=== PATIENT | female | born 1950 | race American Indian/Alaskan Native ===

== ENCOUNTER 2017-03-30 13:11 | Inpatient (IN) | payer MEDICARE ==
[2017-03-30 13:49] LABS: Basophils % (Auto) 0.3 % (0.0-1.8); Eosinophils % (Auto) 2.4 % (0.0-4.3); Hematocrit 39.5 % (30.3-42.9); Hemoglobin 12.4 gm/dl (10.1-14.3); Mean Corpuscular HGB Conc 31 % (30-34); Mean Corpuscular Hemoglobin 29 pg (28-32); Mean Corpuscular Volume 93 fl (79-97); Platelet Count 181 K/mm3 (140-440); Red Blood Count 4.24 M/mm3 (3.65-5.03); White Blood Count 6.7 K/mm3 (4.5-11.0)
[2017-03-30 13:52] LABS: BUN/Creatinine Ratio 15.62; Potassium 4.7 mmol/L (3.6-5.0)
[2017-03-30 13:58] LABS: INR 1.05 (0.87-1.13)
[2017-03-30 13:59] LABS: Partial Thromboplastin Time 31.3 Sec. (24.2-36.6)
--- NOTE | 2017-03-30 14:55 | Cat Scan Report ---
FINAL REPORT PROCEDURE: CT HEAD/BRAIN WO CON TECHNIQUE: Computerized tomography of the head was performed without contrast material. HISTORY: neuro deficits \T\lt; 6hrs or sx present upon awakening COMPARISON: No prior studies are available for comparison. FINDINGS: Brain: Brain density appears normal. No evidence of intracranial hemorrhage. No parenchymal hemorrhage, mass lesions or mass effect are seen. No abnormal extraxial fluid collects or masses are seen. Ventricles: Ventricles are normal size and are midline. Bone Windows: No evidence of skull fracture. Paranasal sinuses: 4 millimeter benign-appearing nodules seen anteriorly in the right maxillary sinus suggesting a small polyp or mucous retention cyst. Visualized portions of the paranasal sinuses otherwise appear clear. Visualized portions of the paranasal sinuses otherwise appear clear. Mastoid air cells: Clear IMPRESSION: Negative unenhanced CT of the brain. If symptoms persist or worsen consider follow-up CT scan or MRI for further evaluation.
[2017-03-30 17:05] LABS: ISTAT Base Excess -1; ISTAT HCO3 25.3; ISTAT PCO2 48.1 (35-45); ISTAT PH 7.328 (7.35-7.45); ISTAT PO2 101 (80-105); ISTAT SO2 97; ISTAT TCO2 27
--- NOTE | 2017-03-30 17:30 | Emergency Department Report ---
ED Dizziness HPI - General Chief Complaint: Dizziness Stated Complaint: SLUGGISH/IRISH/CANT STAY AWAKE Time Seen by Provider: 03/30/17 16:23 Source: patient Mode of arrival: Wheelchair Limitations: No Limitations - History of Present Illness Initial Comments: 66 yo female with a past medical history of COPD dependent on 2 L oxygen, CHF, asthma, hypertension, CAD with stents presents to the hospital complains of feeling swimmy headed off balance and increased drowsiness last 3-4 days. Patient ran out of her prednisone 10 mg daily dose 2 weeks ago. She complains of some mild increased shortness of breath temporarily relieved with nebulized treatments. Intermittent bilateral lower extremity edema reported and right leg pain. She denies chest pain, cough, fever, nausea, vomiting, diarrhea, decreased by mouth intake. She ambulates with a cane at her baseline. Intelligence Specialist Dr. Gaspar, PMD: Dr. Krueger - Related Data Previous Rx's Medication Instructions Recorded Last Taken Type ALBUTEROL NEB's [Proventil 0.083% 2.5 mg IH Q6H #100 ml 04/25/14 09/10/15 Rx NEBS] 2.5 MG Aspirin [Aspirin BABY CHEW TAB] 81 mg PO QDAY #90 tab.chew 09/15/15 Unknown Rx Carvedilol [Coreg] 12.5 mg PO BID #60 tablet 09/15/15 Unknown Rx Furosemide [Lasix TAB] 20 mg PO QDAY #30 tablet 09/15/15 Unknown Rx Ipratropium [Atrovent NEB] 0.5 mg IH Q8HRT PRN #50 nebu 09/15/15 Unknown Rx Ipratropium/Albuterol Sulfate 1 ampul IH Q4HRT #120 ampul.neb 09/15/15 Unknown Rx [DUONEB *Not for PRN Use*] Losartan [Cozaar] 50 mg PO QDAY #30 tablet 09/15/15 Unknown Rx Potassium Chloride 10 meq PO QDAY #30 packet 09/15/15 Unknown Rx QUEtiapine [SEROquel] 400 mg PO BID #60 tablet 09/15/15 Unknown Rx Sertraline [Zoloft] 200 mg PO DAILY #30 tablet 09/15/15 Unknown Rx amLODIPine [Norvasc] 5 mg PO DAILY #30 tablet 09/15/15 Unknown Rx clonazePAM 1 tab PO BID #60 tablet 09/15/15 Unknown Rx predniSONE [Deltasone] 10 mg PO QDAY #60 tab 09/15/15 Unknown Rx Allergies Allergy/AdvReac Type Severity Reaction Status Date / Time penicillin G Allergy Itching Verified 12/23/14 14:13 codeine AdvReac Dizziness Verified 12/23/14 14:13 ED Review of Systems ROS: Stated complaint: SLUGGISH/IRISH/CANT STAY AWAKE Other details as noted in HPI Comment: All other systems reviewed and negative Other: Constitutional: No fevers chills Eyes: No eye pain visual changes ENT: No ear pain or throat pain Neck: Denies pain Respiratory: Denies cough wheezing shortness of breath Cardiovascular: Denies chest pain, palpitations, syncope GI: Denies abdominal pain, nausea, vomiting, diarrhea : Denies dysuria Musculoskeletal: Denies back pain Skin: Denies rash, lesions, erythema Neurologic: Denies headache, numbness Psychiatric: Denies suicidal ideation, hallucinations ED Past Medical Hx - Past Medical History Previous Medical History?: Yes Hx Hypertension: Yes Hx Congestive Heart Failure: Yes Hx Diabetes: No Hx Asthma: Yes Hx COPD: Yes Hx HIV: No Additional medical history: CAD - Surgical History Past Surgical History?: Yes Hx Coronary Stent: Yes Additional Surgical History: stents, heart cath - Social History Smoking Status: Never Smoker Substance Use Type: None - Medications Home Medications: Home Medications Medication Instructions Recorded Confirmed Last Taken Type ALBUTEROL NEB's [Proventil 0.083% 2.5 mg IH Q6H #100 ml 04/25/14 09/10/15 Rx NEBS] 2.5 MG Aspirin [Aspirin BABY CHEW TAB] 81 mg PO QDAY #90 tab.chew 09/15/15 Unknown Rx Carvedilol [Coreg] 12.5 mg PO BID #60 tablet 09/15/15 Unknown Rx Furosemide [Lasix TAB] 20 mg PO QDAY #30 tablet 09/15/15 Unknown Rx Ipratropium [Atrovent NEB] 0.5 mg IH Q8HRT PRN #50 nebu 09/15/15 Unknown Rx Ipratropium/Albuterol Sulfate 1 ampul IH Q4HRT #120 ampul.neb 09/15/15 Unknown Rx [DUONEB *Not for PRN Use*] Losartan [Cozaar] 50 mg PO QDAY #30 tablet 09/15/15 Unknown Rx Potassium Chloride 10 meq PO QDAY #30 packet 09/15/15 Unknown Rx QUEtiapine [SEROquel] 400 mg PO BID #60 tablet 09/15/15 Unknown Rx Sertraline [Zoloft] 200 mg PO DAILY #30 tablet 09/15/15 Unknown Rx amLODIPine [Norvasc] 5 mg PO DAILY #30 tablet 09/15/15 Unknown Rx clonazePAM 1 tab PO BID #60 tablet 09/15/15 Unknown Rx predniSONE [Deltasone] 10 mg PO QDAY #60 tab 09/15/15 Unknown Rx ED Physical Exam - General Limitations: No Limitations - Other Other exam information: General: No limitations, patient is alert in no acute distress Head exam: Atraumatic, normocephalic Eyes exam: Normal appearance, pupils equal reactive to light, extraocular movements intact ENT: Moist mucous membrane, normal oropharynx Neck exam: Normal inspection, full range of motion, no meningismus nontender Respiratory exam: Clear to auscultation bilateral, no wheezes, rales, crackles Cardiovascular: Normal rate and rhythm, normal heart sounds Abdomen: Soft, nondistended, and nontender, with normal bowel sounds, no rebound, or guarding Extremity: Full range of motion normal inspection no deformity. Mild lower extremity edema equal bilaterally. No leg asymmetry. Generalized right leg pain with muscle tenderness of upper and lower leg. No warmth or erythema. Back: Normal Inspection, full range of motion, no tenderness Neurologic: Alert, oriented x3, cranial nerves intact, no motor or sensory deficit Psychiatric: normal affect, normal mood Skin: Warm, dry, intact ED Course Vital Signs 03/30/17 03/30/17 03/30/17 13:16 16:44 17:01 Temperature 98.6 F Pulse Rate 94 H Respiratory 16 16 Rate Blood Pressure 113/64 O2 Sat by Pulse 98 96 99 Oximetry 03/30/17 03/30/17 03/30/17 17:04 17:06 17:08 Temperature Pulse Rate 81 80 81 Respiratory 13 17 14 Rate Blood Pressure 107/65 107/65 107/65 O2 Sat by Pulse 99 98 98 Oximetry 03/30/17 03/30/17 03/30/17 17:10 17:12 17:14 Temperature Pulse Rate 81 80 81 Respiratory 13 14 13 Rate Blood Pressure 107/65 107/65 107/65 O2 Sat by Pulse 99 98 98 Oximetry 03/30/17 03/30/17 03/30/17 17:16 17:18 17:20 Temperature Pulse Rate 80 80 81 Respiratory 13 14 14 Rate Blood Pressure 107/65 107/65 107/65 O2 Sat by Pulse 98 98 98 Oximetry 03/30/17 03/30/17 03/30/17 17:22 17:24 17:26 Temperature Pulse Rate 83 80 81 Respiratory 15 14 13 Rate Blood Pressure 107/65 107/65 107/65 O2 Sat by Pulse 97 98 97 Oximetry 03/30/17 03/30/17 03/30/17 17:28 17:30 17:32 Temperature Pulse Rate 82 81 81 Respiratory 14 14 14 Rate Blood Pressure 107/65 107/65 107/65 O2 Sat by Pulse 98 98 99 Oximetry 03/30/17 03/30/17 03/30/17 17:34 17:36 17:38 Temperature Pulse Rate 81 83 84 Respiratory 13 14 13 Rate Blood Pressure 107/65 107/65 107/65 O2 Sat by Pulse 98 98 97 Oximetry 03/30/17 03/30/17 03/30/17 17:40 17:42 17:44 Temperature Pulse Rate 83 83 83 Respiratory 20 18 17 Rate Blood Pressure 107/65 107/65 107/65 O2 Sat by Pulse 98 98 98 Oximetry 03/30/17 03/30/17 03/30/17 17:46 17:48 17:50 Temperature Pulse Rate 84 84 83 Respiratory 17 17 17 Rate Blood Pressure 107/65 107/65 107/65 O2 Sat by Pulse 99 98 99 Oximetry 03/30/17 03/30/17 03/30/17 17:52 17:54 17:56 Temperature Pulse Rate 82 82 82 Respiratory 16 14 16 Rate Blood Pressure 107/65 107/65 107/65 O2 Sat by Pulse 99 99 100 Oximetry 03/30/17 03/30/17 03/30/17 17:58 18:00 18:01 Temperature Pulse Rate 82 81 82 Respiratory 14 15 15 Rate Blood Pressure 107/65 107/65 130/82 O2 Sat by Pulse 100 100 100 Oximetry 03/30/17 03/30/17 03/30/17 18:02 18:04 18:06 Temperature Pulse Rate 82 83 81 Respiratory 16 17 15 Rate Blood Pressure 130/82 130/82 130/82 O2 Sat by Pulse 99 100 99 Oximetry 03/30/17 03/30/17 03/30/17 18:08 18:10 18:12 Temperature Pulse Rate 82 82 82 Respiratory 14 13 16 Rate Blood Pressure 130/82 130/82 130/82 O2 Sat by Pulse 100 100 100 Oximetry 03/30/17 03/30/17 03/30/17 18:14 18:16 18:17 Temperature Pulse Rate 82 82 82 Respiratory 16 15 15 Rate Blood Pressure 130/82 O2 Sat by Pulse 99 99 100 Oximetry 03/30/17 03/30/17 03/30/17 18:19 18:21 18:23 Temperature Pulse Rate 82 82 81 Respiratory 17 15 15 Rate Blood Pressure O2 Sat by Pulse 100 99 99 Oximetry 03/30/17 03/30/17 03/30/17 18:25 18:27 18:29 Temperature Pulse Rate 82 82 83 Respiratory 16 20 17 Rate Blood Pressure 130/82 130/82 O2 Sat by Pulse 99 100 99 Oximetry 03/30/17 03/30/17 03/30/17 18:31 18:33 18:35 Temperature Pulse Rate 83 82 82 Respiratory 18 15 16 Rate Blood Pressure 130/82 130/82 130/82 O2 Sat by Pulse 99 100 99 Oximetry 03/30/17 03/30/17 18:37 18:39 Temperature Pulse Rate 85 83 Respiratory 19 18 Rate Blood Pressure 130/82 130/82 O2 Sat by Pulse 100 99 Oximetry - Reevaluation(s) Reevaluation #1: 03/30/17 19:11 [place] given for pain. Orthostatics unremarkable. Symptoms could be secondary to steriod withdrawal. Chest x-ray unremarkable - Consultations Consultation #1: 03/30/17 17:55 Dr Krueger states he is unable to discuss patient this time and recommends admission to the hospitalist service. ED Medical Decision Making - Lab Data Result diagrams: 03/30/17 13:29 03/30/17 13:29 Lab Results 03/30/17 03/30/17 03/30/17 Range/Units 13:29 13:29 13:29 WBC 6.7 (4.5-11.0) K/mm3 RBC 4.24 (3.65-5.03) M/mm3 Hgb 12.4 (10.1-14.3) gm/dl Hct 39.5 (30.3-42.9) % MCV 93 (79-97) fl MCH 29 (28-32) pg MCHC 31 (30-34) % RDW 14.0 (13.2-15.2) % Plt Count 181 (140-440) K/mm3 Lymph % (Auto) 27.4 (13.4-35.0) % [place] % (Auto) 14.5 H (0.0-7.3) % Eos % (Auto) 2.4 (0.0-4.3) % Baso % (Auto) 0.3 (0.0-1.8) % Lymph # 1.8 (1.2-5.4) K/mm3 [place] # 1.0 H (0.0-0.8) K/mm3 Eos # 0.2 (0.0-0.4) K/mm3 Baso # 0.0 (0.0-0.1) K/mm3 Seg Neutrophils % 55.4 (40.0-70.0) % Seg Neutrophils # 3.7 (1.8-7.7) K/mm3 PT 13.6 (12.2-14.9) Sec. INR 1.05 (0.87-1.13) APTT 31.3 (24.2-36.6) Sec. Thrombin Time (15.1-19.6) Sec. POC ABG pH (7.35-7.45) POC ABG pCO2 (35-45) POC ABG pO2 (80-105) POC ABG HCO3 POC ABG Total CO2 POC ABG O2 Sat POC ABG Base Excess FiO2 % Sodium 137 (137-145) mmol/L Potassium 4.7 (3.6-5.0) mmol/L Chloride 98.0 (98-107) mmol/L Carbon Dioxide 24 (22-30) mmol/L Anion Gap 20 mmol/L BUN 25 H (7-17) mg/dL Creatinine 1.6 H (0.7-1.2) mg/dL Estimated GFR 39 ml/min BUN/Creatinine Ratio 15.62 % Glucose 105 H (65-100) mg/dL Calcium 9.0 (8.4-10.2) mg/dL Troponin T 0.072 H (0.00-0.029) ng/mL Triglycerides 76 (2-149) mg/dL Cholesterol 200 H (50-199) mg/dL LDL Cholesterol Direct 123 (50-130) mg/dL HDL Cholesterol 62 H (40-59) mg/dL Cholesterol/HDL Ratio 3.22 % 03/30/17 03/30/17 Range/Units 13:29 16:57 WBC (4.5-11.0) K/mm3 RBC (3.65-5.03) M/mm3 Hgb (10.1-14.3) gm/dl Hct (30.3-42.9) % MCV (79-97) fl MCH (28-32) pg MCHC (30-34) % RDW (13.2-15.2) % Plt Count (140-440) K/mm3 Lymph % (Auto) (13.4-35.0) % [place] % (Auto) (0.0-7.3) % Eos % (Auto) (0.0-4.3) % Baso % (Auto) (0.0-1.8) % Lymph # (1.2-5.4) K/mm3 [place] # (0.0-0.8) K/mm3 Eos # (0.0-0.4) K/mm3 Baso # (0.0-0.1) K/mm3 Seg Neutrophils % (40.0-70.0) % Seg Neutrophils # (1.8-7.7) K/mm3 PT (12.2-14.9) Sec. INR (0.87-1.13) APTT (24.2-36.6) Sec. Thrombin Time 17.5 (15.1-19.6) Sec. POC ABG pH 7.328 L (7.35-7.45) POC ABG pCO2 48.1 H (35-45) POC ABG pO2 101 (80-105) POC ABG HCO3 25.3 POC ABG Total CO2 27 POC ABG O2 Sat 97 POC ABG Base Excess -1 FiO2 2 % Sodium (137-145) mmol/L Potassium (3.6-5.0) mmol/L Chloride (98-107) mmol/L Carbon Dioxide (22-30) mmol/L Anion Gap mmol/L BUN (7-17) mg/dL Creatinine (0.7-1.2) mg/dL Estimated GFR ml/min BUN/Creatinine Ratio % Glucose (65-100) mg/dL Calcium (8.4-10.2) mg/dL Troponin T (0.00-0.029) ng/mL Triglycerides (2-149) mg/dL Cholesterol (50-199) mg/dL LDL Cholesterol Direct (50-130) mg/dL HDL Cholesterol (40-59) mg/dL Cholesterol/HDL Ratio % - EKG Data -: EKG Interpreted by Me (sinus rhythm rate 88 Rule out anterior infarct) - EKG Data When compared to previous EKG there are: no significant change (comparec to 2015) - Radiology Data Radiology results: report reviewed CTA: No acute findings Chest x-ray single view: Increased density left lower lobe just atelectasis versus subsegmental infiltrate. - Medical Decision Making Patient does not have clinical signs of pneumonia lacks fever, leukocytosis therefore I think that chest x-ray findings is more suggestive of atelectasis as opposed to infiltrate. Patient has elevated troponin which could be secondary to renal insufficiency but given cardiac history repeat is needed. No signs of co2 retention, narcosis. Patient does have right leg pain but no asymmetry noted. No reports of chest pain - Differential Diagnosis infection, CO2 retention, COPD exacerbation, Critical Care Time: No Critical care attestation.: If time is entered above; I have spent that time in minutes in the direct care of this critically ill patient, excluding procedure time. ED Disposition Clinical Impression: COPD exacerbation, History of PTCA, Morbid exogenous obesity, Shortness of breath, Lightheadedness, Acute renal insufficiency, Hypertension Disposition: OP ADMIT IP TO THIS HOSP Is pt being admited?: Yes Condition: Stable Time of Disposition: 19:33 (Dr brady/hosp)
[2017-03-30] MEDS ORDERED: NORCO 5/325 PO ONE (17:51)
--- NOTE | 2017-03-30 18:01 | XRay Report ---
FINAL REPORT PROCEDURE: XR CHEST 1V AP TECHNIQUE: Chest radiograph anteroposterior view. CPT 87828 HISTORY: sob COMPARISON: No prior studies are available for comparison. FINDINGS: Heart: Normal size. Mediastinum/Vessels: Normal. Lungs/Pleural space: There is increased density in the left lower lobe suggesting left lower lobe pneumonia or atelectasis. Clinical correlation necessary. Lung brito otherwise are clear. No effusions are identified.. Bony thorax: No acute osseous abnormality. Life support devices: None. IMPRESSION: Increased density left lower lobe suggesting atelectasis versus subsegmental infiltrate. Clinical correlation recommended. No other abnormality is seen..
[2017-03-30] MEDS ORDERED: ATROVENT IH PRN (21:01)
--- NOTE | 2017-03-30 21:01 | History and Physical Report ---
History of Present Illness Date of examination: 03/30/17 Medications and Allergies Allergies Allergy/AdvReac Type Severity Reaction Status Date / Time penicillin G Allergy Itching Verified 12/23/14 14:13 codeine AdvReac Dizziness Verified 12/23/14 14:13 Home Medications Medication Instructions Recorded Confirmed Last Taken Type ALBUTEROL NEB's [Proventil 0.083% 2.5 mg IH Q6H #100 ml 04/25/14 09/10/15 Rx NEBS] 2.5 MG Aspirin [Aspirin BABY CHEW TAB] 81 mg PO QDAY #90 tab.chew 09/15/15 Unknown Rx Carvedilol [Coreg] 12.5 mg PO BID #60 tablet 09/15/15 Unknown Rx Furosemide [Lasix TAB] 20 mg PO QDAY #30 tablet 09/15/15 Unknown Rx Ipratropium [Atrovent NEB] 0.5 mg IH Q8HRT PRN #50 nebu 09/15/15 Unknown Rx Ipratropium/Albuterol Sulfate 1 ampul IH Q4HRT #120 ampul.neb 09/15/15 Unknown Rx [DUONEB *Not for PRN Use*] Losartan [Cozaar] 50 mg PO QDAY #30 tablet 09/15/15 Unknown Rx Potassium Chloride 10 meq PO QDAY #30 packet 09/15/15 Unknown Rx QUEtiapine [SEROquel] 400 mg PO BID #60 tablet 09/15/15 Unknown Rx Sertraline [Zoloft] 200 mg PO DAILY #30 tablet 09/15/15 Unknown Rx amLODIPine [Norvasc] 5 mg PO DAILY #30 tablet 09/15/15 Unknown Rx clonazePAM 1 tab PO BID #60 tablet 09/15/15 Unknown Rx predniSONE [Deltasone] 10 mg PO QDAY #60 tab 09/15/15 Unknown Rx Exam - Constitutional Vitals: Temp Pulse Resp BP Pulse Ox 98.6 F 83 18 130/82 99 03/30/17 13:16 03/30/17 18:39 03/30/17 18:39 03/30/17 18:39 03/30/17 18:39 Results - Labs CBC & Chem 7: 03/30/17 13:29 03/30/17 13:29 Labs: Laboratory Last Values WBC 6.7 K/mm3 (4.5-11.0) 03/30/17 13: RBC 4.24 M/mm3 (3.65-5.03) 03/30/17 13: Hgb 12.4 gm/dl (10.1-14.3) 03/30/17 13: Hct 39.5 % (30.3-42.9) 03/30/17 13: MCV 93 fl (79-97) 03/30/17 13: MCH 29 pg (28-32) 03/30/17 13: MCHC 31 % (30-34) 03/30/17 13: RDW 14.0 % (13.2-15.2) 03/30/17 13: Plt Count 181 K/mm3 (140-440) 03/30/17 13: Lymph % (Auto) 27.4 % (13.4-35.0) 03/30/17 13: [place] % (Auto) 14.5 % (0.0-7.3) H 03/30/17 13: Eos % (Auto) 2.4 % (0.0-4.3) 03/30/17 13: Baso % (Auto) 0.3 % (0.0-1.8) 03/30/17 13: Lymph # 1.8 K/mm3 (1.2-5.4) 03/30/17 13: [place] # 1.0 K/mm3 (0.0-0.8) H 03/30/17 13: Eos # 0.2 K/mm3 (0.0-0.4) 03/30/17 13: Baso # 0.0 K/mm3 (0.0-0.1) 03/30/17 13: Seg Neutrophils % 55.4 % (40.0-70.0) 03/30/17: Seg Neutrophils # 3.7 K/mm3 (1.8-7.7) 03/30/17 13: PT 13.6 Sec. (12.2-14.9) 03/30/17 13: INR 1.05 (0.87-1.13) 03/30/17 13: APTT 31.3 Sec. (24.2-36.6) 03/30/17 13:29 Thrombin Time 17.5 Sec. (15.1-19.6) 03/30/17 13:29 POC ABG pH 7.328 (7.35-7.45) L 03/30/17 16:57 POC ABG pCO2 48.1 (35-45) H 03/30/17 16:57 POC ABG pO2 101 (80-105) 03/30/17 16:57 POC ABG HCO3 25.3 03/30/17 16:57 POC ABG Total CO2 27 03/30/17 16:57 POC ABG O2 Sat 97 03/30/17 16:57 POC ABG Base Excess -1 03/30/17 16:57 FiO2 2 % 03/30/17 16:57 Sodium 137 mmol/L (137-145) 03/30/17 13:29 Potassium 4.7 mmol/L (3.6-5.0) 03/30/17 13:29 Chloride 98.0 mmol/L (98-107) 03/30/17 13:29 Carbon Dioxide 24 mmol/L (22-30) 03/30/17 13:29 Anion Gap 20 mmol/L 03/30/17 13:29 BUN 25 mg/dL (7-17) H 03/30/17 13:29 Creatinine 1.6 mg/dL (0.7-1.2) H 03/30/17 13:29 Estimated GFR 39 ml/min 03/30/17 13:29 BUN/Creatinine Ratio 15.62 % 03/30/17 13:29 Glucose 105 mg/dL (65-100) H 03/30/17 13:29 Calcium 9.0 mg/dL (8.4-10.2) 03/30/17 13:29 Troponin T 0.048 ng/mL (0.00-0.029) H D 03/30/17 19:30 Triglycerides 76 mg/dL (2-149) 03/30/17 13:29 Cholesterol 200 mg/dL (50-199) H 03/30/17 13:29 LDL Cholesterol Direct 123 mg/dL (50-130) 03/30/17 13:29 HDL Cholesterol 62 mg/dL (40-59) H 03/30/17 13:29 Cholesterol/HDL Ratio 3.22 % 03/30/17 13:29
[2017-03-30] MEDS ORDERED: TYLENOL PO PRN (21:03)
[2017-03-30] MEDS ORDERED: ZOFRAN IV PRN (21:03)
[2017-03-30] MEDS ORDERED: DULCOLAX PR PRN (21:03)
[2017-03-30] MEDS ORDERED: MILK OF MAGNESIA PO PRN (21:03)
[2017-03-30] MEDS ORDERED: DUONEB *Not for PRN Use IH (21:05)
[2017-03-30] MEDS ORDERED: PROVENTIL IH PRN (21:15)
[2017-03-30] MEDS ORDERED: PROVENTIL IH SCH (21:15)
[2017-03-30] MEDS ORDERED: DUONEB *Not for PRN Use IH SCH (21:15)
[2017-03-30] MEDS ORDERED: LEVAQUIN 750MG/150ML 750 MG/150 ML BAG IV SCH (22:00)
[2017-03-30] MEDS: BABY ASPIRIN PO SCH (23:04)
[2017-03-30] MEDS: NORVASC PO SCH (23:05)
[2017-03-30] MEDS: COREG PO SCH (23:44)
[2017-03-31] MEDS: DUONEB *Not for PRN Use IH SCH ×7 (01:00→23:27)
[2017-03-31 07:18] LABS: Albumin 3.5 g/dL (3.9-5); BUN/Creatinine Ratio 17.85; Bilirubin,Total 0.4 mg/dL (0.1-1.2); Calcium 8.9 mg/dL (8.4-10.2); Potassium 4.3 mmol/L (3.6-5.0); Total Protein 7.1 g/dL (6.3-8.2)
--- NOTE | 2017-03-31 08:53 | History and Physical Report ---
History of Present Illness Date of examination: 03/31/17 Date of admission: 03/30/17 21:03 Chief complaint: Shortness of breath, dizziness History of present illness: Pt is a 66 y/o lady who is well known to me with a history of CHF, CAD s/p stent, frequent falls, COPD, dependent on 2 L oxygen at home presented to the ER of [facility] on account of worsening shortness of breath. Her symptoms were not improved with her home nebulizer treatment. Pt had been on prednisone for her advance COPD but ran out about 1 week ago. She denies any fever, chills, chest pain nausea of vomiting. Has occasional sharif lower extremities swelling. At the ER, pt was given further nebulizer treatment of beta agonist. Symptoms persisted. CXR showed left lower lobe atelecesis versus infiltrate but had no leukocytosis. Admissionws therefore requested. Past History Past Medical History: CAD, COPD, heart failure, hypertension Past Surgical History: PTCA Social history: denies: smoking, alcohol abuse, prescription drug abuse Medications and Allergies Allergies Allergy/AdvReac Type Severity Reaction Status Date / Time penicillin G Allergy Itching Verified 12/23/14 14:13 codeine AdvReac Dizziness Verified 12/23/14 14:13 Home Medications Medication Instructions Recorded Confirmed Last Taken Type ALBUTEROL NEB's [Proventil 0.083% 2.5 mg IH Q6H #100 ml 04/25/14 03/30/17 Rx NEBS] 2.5 MG Aspirin [Aspirin BABY CHEW TAB] 81 mg PO QDAY #90 tab.chew 09/15/15 03/30/17 Rx Carvedilol [Coreg] 12.5 mg PO BID #60 tablet 09/15/15 03/30/17 Unknown Rx Furosemide [Lasix TAB] 20 mg PO QDAY #30 tablet 09/15/15 03/30/17 03/30/17 Rx Ipratropium [Atrovent NEB] 0.5 mg IH Q8HRT PRN #50 nebu 09/15/15 03/30/17 Unknown Rx Ipratropium/Albuterol Sulfate 1 ampul IH Q4HRT #120 ampul.neb 09/15/15 03/30/17 03/30/17 Rx [DUONEB *Not for PRN Use*] Losartan [Cozaar] 50 mg PO QDAY #30 tablet 09/15/15 03/30/17 03/30/17 Rx Potassium Chloride 10 meq PO QDAY #30 packet 09/15/15 03/30/17 03/30/17 Rx QUEtiapine [SEROquel] 400 mg PO BID #60 tablet 09/15/15 03/30/17 03/29/17 Rx Sertraline [Zoloft] 200 mg PO DAILY #30 tablet 09/15/15 03/30/17 03/30/17 Rx amLODIPine [Norvasc] 5 mg PO DAILY #30 tablet 09/15/15 03/30/17 03/30/17 Rx clonazePAM 1 tab PO BID #60 tablet 09/15/15 03/30/17 03/30/17 Rx predniSONE [Deltasone] 10 mg PO QDAY #60 tab 09/15/15 03/30/17 Unknown Rx Metoprolol Tartrate 75 mg PO QAM 03/30/17 03/30/17 03/30/17 History Active Meds: Active Medications Acetaminophen (Tylenol) 650 mg PO Q4H PRN PRN Reason: Pain MILD(1-3)/Fever >100.5/BRITO Albuterol (Proventil) 2.5 mg IH Q3HRT PRN PRN Reason: Shortness Of Breath Albuterol/Ipratropium (Duoneb *Not For Prn Use*) 1 ampul IH Q4HRT [facility] Last Admin: 03/31/17 08:34 Dose: Not Given Amlodipine Besylate (Norvasc) 5 mg PO DAILY [facility] Last Admin: 03/30/17 23:05 Dose: Not Given Aspirin (Baby Aspirin) 81 mg PO QDAY [facility] Last Admin: 03/30/17 23:04 Dose: Not Given Bisacodyl (Dulcolax) 10 mg [place] QDAY PRN PRN Reason: Constipation unrelieved by MOM Carvedilol (Coreg) 12.5 mg PO BID [facility] Last Admin: 03/30/17 23:44 Dose: 12.5 mg Clonazepam (Klonopin) 1 mg PO BID [facility] Last Admin: 03/30/17 23:46 Dose: 1 mg Enoxaparin Sodium (Lovenox) 30 mg SUB-Q QDAY [facility] Furosemide (Lasix) 20 mg PO QDAY [facility] Hydromorphone HCl (Dilaudid) 0.5 mg IV Q3H PRN PRN Reason: Pain , Severe (7-10) Levofloxacin/Dextrose (Levaquin 750mg/150ml) 750 mg in 150 mls @ 100 mls/hr IV Q48HR [facility] PRN Reason: Protocol Last Admin: 03/30/17 23:46 Dose: 100 mls/hr Losartan Potassium (Cozaar) 50 mg PO QDAY [facility] Magnesium Hydroxide (Milk Of Magnesia) 30 ml PO Q4H PRN PRN Reason: Constipation Methylprednisolone Sodium Succinate (Solu-Medrol) 60 mg IV Q8HR [facility] Last Admin: 03/31/17 05:44 Dose: 60 mg Ondansetron HCl (Zofran) 4 mg IV Q8H PRN PRN Reason: N/V unrelieved by Reglan Potassium Chloride (K-Dur) 10 meq PO QDAY [facility] Quetiapine Fumarate (Seroquel) 400 mg PO BID [facility] Last Admin: 03/30/17 23:46 Dose: 400 mg Sertraline HCl (Zoloft) 200 mg PO DAILY [facility] Review of Systems Constitutional: weakness, no weight loss, no fever, no chills, no sweats Ears, nose, mouth and throat: no ear pain, no ear discharge Cardiovascular: shortness of breath, dyspnea on exertion, no chest pain, no orthopnea, no palpitations Respiratory: shortness of breath, dyspnea on exertion, no cough, no hemoptysis Gastrointestinal: no abdominal pain, no nausea, no vomiting, no diarrhea, no constipation Musculoskeletal: no neck stiffness, no neck pain, no shooting arm pain Integumentary: no rash, no pruritis, no redness Neurological: no head injury, no transient paralysis, no paralysis Psychiatric: no anxiety, no memory loss, no change in sleep habits, no sleep disturbances Endocrine: no cold intolerance, no heat intolerance, no polyphagia Hematologic/Lymphatic: no easy bruising, no easy bleeding Allergic/Immunologic: no urticaria Exam - Constitutional Vitals: Temp Pulse Resp BP Pulse Ox 98.6 F 91 H 18 132/78 98 03/30/17 13:16 03/31/17 07:52 03/31/17 07:52 03/31/17 04:00 03/31/17 07:41 General appearance: Present: no acute distress, well-nourished - EENT Eyes: Present: PERRL - Neck Neck: Present: supple, normal ROM - Respiratory Respiratory effort: normal Respiratory: bilateral: CTA - Cardiovascular Heart Sounds: Present: S1 & S2. Absent: rub, click - Extremities Extremities: pulses symmetrical, No edema Peripheral Pulses: within normal limits - Abdominal General gastrointestinal: Present: soft, non-tender, non-distended - Integumentary Integumentary: Present: clear, warm, dry - Musculoskeletal Musculoskeletal: gait normal, strength equal bilaterally - Psychiatric Psychiatric: appropriate mood/affect, intact judgment & insight - Neurologic Neurologic: CNII-XII intact, moves all extremities Results - Labs CBC & Chem 7: 03/30/17 13:29 03/31/17 05:32 Labs: Abnormal lab results 03/31/17 Range/Units 05:32 BUN 25 H (7-17) mg/dL Creatinine 1.4 H (0.7-1.2) mg/dL Glucose 148 H (65-100) mg/dL AST 60 H (5-40) units/L Albumin 3.5 L (3.9-5) g/dL Assessment and Plan - Acute hypercapneoic respiratory failure - COPD Exercebation - Acute hypercapneic - Acute renal failure from tubular necrosis - Elevated troponin levels with no chest pain - Hyperlipidemia Plan Admit to tele Continue with Bronchodilators, Provona, Suplemtnal oxygen IV hydration EKG, ASA, carvedilol, Serial Braydon Commence Statin DVT PPx with Lovenox and GI with pepcid
[2017-03-31] MEDS ORDERED: DELTASONE PO SCH (10:00)
[2017-03-31] MEDS ORDERED: LOVENOX SUB-Q SCH (10:00)
--- NOTE | 2017-03-31 10:02 | Admit Criteria Form ---
Admission Criteria Documentation: COPD Clinical Indications for Admission to Inpatient Care ([place]/ check or initial the applicable condition/criteria) Admission is indicated for ANY ONE of the following (1)(2)(3): [ ]I. Acute exacerbation by high-risk comorbidity(e.g., pneumonia, dysrhythmia, heart failure, pleural effusion, pneumothorax) or severe underlying COPD (eg, baseline FEV1 less than 50% predicted) [X]II. Inpatient admission required[A] rather than observation care (see Chronic Obstructive Pulmonary Disease: Observation Care) because of ANY ONE of the following: [X ]a) New or pre-existing signs or symptoms of COPD (eg, dyspnea or Tachypnea at rest or with minimal activity) that persist despite outpatient and observation care treatment [ ]b) New-onset hypoxemia (room air SaO2 less than 90%, PO2 less than 60 mm Hg (8.0 kPa)) that persists despite outpatient and observation care treatment [X]c) Worsening of pre-existing hypoxemia (eg, new or increased requirement for supplemental oxygen to maintain oxygenation at baseline level) that persists despite outpatient and observation care treatment, with oxygen treatment needs performable only in acute inpatient setting [X]d) Hypercarbia (PCO2 greater than 40 mm Hg (5.3 kPa))-induced respiratory acidosis (pH less than 7.35) that persists despite outpatient and observation care treatment [ ]e) Supplemental oxygen or respiratory treatments for over 24 hours that are performable only in acute inpatient setting [ ]f) Chest tube placement with active evacuation (e.g., suction, drainage) (6) [ ]g) Other condition, treatment or monitoring requiring inpatient admission [ ]III. Planned invasive surgical or diagnostic procedures requiring acute- care hospitalization [ ]IV. Acute respiratory failure (e.g., uncompensated hypercarbia, severe hypoxemia) [ ]V. Severe comorbid condition (e.g., severe steroid myopathy, acute vertebral fracture) that has acutely worsened pulmonary function [ ]. Altered mental status that is severe or persistent Extended stay beyond goal length of stay may be needed for (29)(30)(31)(32)(33) : [ ]a ) Respiratory Failure. [ ]b) Severe or persisting hypoxemia or hypercarbia [ ]c) Severe or persistent dyspnea [ ]d) Clinically significant Comorbidities (e.g. chronic heart failure, atrial fibrillation with rapid response, pneumonia)(36) [ ]e) Malnutrition (33) The [facility] content created by [facility] has been revised. The portions of the content which have been revised are identified through the use of italic text or in bold, and [facility] has neither reviewed nor approved the modified material. All other unmodified content is copyright [facility]. Please see references footnoted in the original [facility] edition 2017 Admission Criteria Met: Yes
[2017-03-31] MEDS: LASIX PO SCH (11:01)
[2017-03-31] MEDS: ZOLOFT PO SCH (11:01)
[2017-03-31] MEDS: COZAAR PO SCH (11:02)
[2017-03-31] MEDS: BABY ASPIRIN PO SCH ×2 (11:03→11:11)
[2017-03-31] MEDS: NORVASC PO SCH (11:03)
[2017-03-31] MEDS: COREG PO SCH ×2 (11:03→22:15)
[2017-03-31] MEDS: ASPIRIN PO SCH (11:08)
[2017-03-31] MEDS: K-DUR PO SCH (11:08)
[2017-04-01] MEDS: DUONEB *Not for PRN Use IH SCH ×6 (04:54→23:59)
[2017-04-01 05:56] LABS: Basophils % (Auto) 0.1 % (0.0-1.8); Hemoglobin 12.6 gm/dl (10.1-14.3); Mean Corpuscular HGB Conc 32 % (30-34); Mean Corpuscular Hemoglobin 30 pg (28-32); Mean Corpuscular Volume 92 fl (79-97); Platelet Count 185 K/mm3 (140-440); Red Blood Count 4.22 M/mm3 (3.65-5.03); Red Cell Distribution Width 13.9 % (13.2-15.2); White Blood Count 13.3 K/mm3 (4.5-11.0)
[2017-04-01 06:19] LABS: Alanine Aminotransferase 29 units/L (7-56); Albumin 3.5 g/dL (3.9-5); Albumin/Globulin Ratio 1.1 %; Alkaline Phosphatase 43 units/L (35-129); Anion Gap 21 mmol/L; BUN/Creatinine Ratio 23.33; Blood Urea Nitrogen 21 mg/dL (7-17); Calcium 9.2 mg/dL (8.4-10.2); Carbon Dioxide 22 mmol/L (22-30); Chloride 101.5 mmol/L (98-107); Glucose 170 mg/dL (65-100); Potassium 4.3 mmol/L (3.6-5.0); Sodium 140 mmol/L (137-145); Total Protein 6.8 g/dL (6.3-8.2)
--- NOTE | 2017-04-01 09:36 | Progress Note ---
Assessment and Plan - Acute hypercapneoic respiratory failure - COPD Exercebation - Acute hypercapneic - Acute renal failure from tubular necrosis - Elevated troponin levels with no chest pain - Hyperlipidemia Plan Admit to tele Continue with Bronchodilators, Provona, Suplemtnal oxygen IV hydration EKG, ASA, carvedilol, Serial Braydon Commence Statin DVT PPx with Lovenox and GI with pepcid Subjective Date of service: 04/01/17 Principal diagnosis: Respiratory failure, COPD exercebation Interval history: Feeling better but still short of breath Objective - Constitutional Vitals: Vital Signs - 12hr 03/31/17 03/31/17 03/31/17 22:00 22:15 23:28 Temperature Pulse Rate 80 Pulse Rate [ 89 Anterior Bilateral Throughout] Respiratory 19 Rate Respiratory 16 Rate [Anterior Bilateral Throughout] Respiratory 20 Rate [Chest] Blood Pressure 140/65 O2 Sat by Pulse 97 Oximetry 03/31/17 04/01/17 04/01/17 23:40 00:05 04:42 Temperature 98.3 F 97.6 F Pulse Rate 88 94 H Pulse Rate [ 86 Anterior Bilateral Throughout] Respiratory 20 18 Rate Respiratory 16 Rate [Anterior Bilateral Throughout] Respiratory Rate [Chest] Blood Pressure 152/86 158/64 O2 Sat by Pulse 98 94 Oximetry 04/01/17 04/01/17 04/01/17 04:55 05:08 09:12 Temperature 98.6 F Pulse Rate 95 H Pulse Rate [ 89 88 Anterior Bilateral Throughout] Respiratory 20 Rate Respiratory 16 16 Rate [Anterior Bilateral Throughout] Respiratory Rate [Chest] Blood Pressure 175/79 O2 Sat by Pulse 98 Oximetry General appearance: Present: no acute distress, well-nourished - EENT Eyes: PERRL, EOM intact Ears: bilateral: normal - Neck Neck: supple, normal ROM - Respiratory Respiratory effort: normal Respiratory: bilateral: diminished - Breasts Breasts: normal - Cardiovascular Rhythm: regular Heart Sounds: Present: S1 & S2. Absent: gallop, rub Extremities: pulses intact, No edema, normal color, Full ROM - Gastrointestinal General gastrointestinal: Present: soft, non-tender, non-distended, normal bowel sounds - Integumentary Integumentary: clear, warm, dry - Musculoskeletal Musculoskeletal: 1, strength equal bilaterally - Neurologic Neurologic: moves all extremities - Psychiatric Psychiatric: memory intact, appropriate mood/affect, intact judgment & insight - Labs CBC & Chem 7: 04/01/17 04:52 04/01/17 04:52 Labs: Abnormal lab results 04/01/17 04/01/17 Range/Units 04:52 04:52 WBC 13.3 H (4.5-11.0) K/mm3 Lymph % (Auto) 7.7 L (13.4-35.0) % Lymph # 1.0 L (1.2-5.4) K/mm3 Seg Neutrophils % 87.1 H (40.0-70.0) % Seg Neutrophils # 11.6 H (1.8-7.7) K/mm3 BUN 21 H (7-17) mg/dL Glucose 170 H (65-100) mg/dL AST 55 H (5-40) units/L Albumin 3.5 L (3.9-5) g/dL
--- NOTE | 2017-04-01 11:38 | Event Note ---
Date: 04/01/17 Cardiology note dictated #1 dyspnea #2 hypertension #3 COPD #4 obesity #5 mildly abnormal troponin Patient is seen for cardiac evaluation will obtain cardiac workup and monitor closely Thank you for me to participate in the care of this pleasant patient Dr. JUMA Solitario
[2017-04-01] MEDS: LOVENOX SUB-Q SCH (12:32)
[2017-04-01] MEDS: LASIX PO SCH (12:35)
[2017-04-01] MEDS: NORVASC PO SCH (12:36)
[2017-04-01] MEDS: COREG PO SCH ×2 (12:37→21:18)
[2017-04-01] MEDS: COZAAR PO SCH (12:38)
[2017-04-01] MEDS: ASPIRIN PO SCH (12:38)
[2017-04-01] MEDS: ZOLOFT PO SCH (12:43)
[2017-04-01] MEDS: K-DUR PO SCH (12:44)
--- NOTE | 2017-04-01 13:21 | Consultation ---
History of Present Illness Consult date: 04/01/17 Requesting physician: RYAN WATTS Reason for consult: COPD History of present illness: 66 y/o female with known COPD, chronic respiratory failure, followed by Dr. Stubbs who was admitted 2 days ago with worsening dyspnea at rest. Per patient , she had been on hospice for her COPD, but was recently discharged from them. During that transition phase, she did not get many of her meds including her prednisone. She began to feel more short of breath after several days of not having prednisone. Patient was admitted for COPD exacerbation. CXR was clear. Past History Past Medical History: CAD, COPD, heart failure, hypertension Past Surgical History: PTCA Social history: denies: smoking, alcohol abuse, prescription drug abuse Medications and Allergies Allergies Allergy/AdvReac Type Severity Reaction Status Date / Time penicillin G Allergy Itching Verified 12/23/14 14:13 codeine AdvReac Dizziness Verified 12/23/14 14:13 Home Medications Medication Instructions Recorded Confirmed Last Taken Type ALBUTEROL NEB's [Proventil 0.083% 2.5 mg IH Q6H #100 ml 04/25/14 03/30/17 Rx NEBS] 2.5 MG Aspirin [Aspirin BABY CHEW TAB] 81 mg PO QDAY #90 tab.chew 09/15/15 03/30/17 Rx Carvedilol [Coreg] 12.5 mg PO BID #60 tablet 09/15/15 03/30/17 Unknown Rx Furosemide [Lasix TAB] 20 mg PO QDAY #30 tablet 09/15/15 03/30/17 03/30/17 Rx Ipratropium [Atrovent NEB] 0.5 mg IH Q8HRT PRN #50 nebu 09/15/15 03/30/17 Unknown Rx Ipratropium/Albuterol Sulfate 1 ampul IH Q4HRT #120 ampul.neb 09/15/15 03/30/17 03/30/17 Rx [DUONEB *Not for PRN Use*] Losartan [Cozaar] 50 mg PO QDAY #30 tablet 09/15/15 03/30/17 03/30/17 Rx Potassium Chloride 10 meq PO QDAY #30 packet 09/15/15 03/30/17 03/30/17 Rx QUEtiapine [SEROquel] 400 mg PO BID #60 tablet 09/15/15 03/30/17 03/29/17 Rx Sertraline [Zoloft] 200 mg PO DAILY #30 tablet 09/15/15 03/30/17 03/30/17 Rx amLODIPine [Norvasc] 5 mg PO DAILY #30 tablet 09/15/15 03/30/17 03/30/17 Rx clonazePAM 1 tab PO BID #60 tablet 09/15/15 03/30/17 03/30/17 Rx predniSONE [Deltasone] 10 mg PO QDAY #60 tab 09/15/15 03/30/17 Unknown Rx Metoprolol Tartrate 75 mg PO QAM 03/30/17 03/30/17 03/30/17 History Active Meds: Active Medications Acetaminophen (Tylenol) 650 mg PO Q4H PRN PRN Reason: Pain MILD(1-3)/Fever >100.5/BRITO Albuterol (Proventil) 2.5 mg IH Q3HRT PRN PRN Reason: Shortness Of Breath Albuterol/Ipratropium (Duoneb *Not For Prn Use*) 1 ampul IH Q4HRT [facility] Last Admin: 04/01/17 10:10 Dose: 1 ampul Amlodipine Besylate (Norvasc) 5 mg PO DAILY [facility] Last Admin: 04/01/17 12:36 Dose: 5 mg Aspirin (Aspirin) 325 mg PO QDAY [facility] Last Admin: 04/01/17 12:38 Dose: 325 mg Bisacodyl (Dulcolax) 10 mg [place] QDAY PRN PRN Reason: Constipation unrelieved by MOM Carvedilol (Coreg) 12.5 mg PO BID [facility] Last Admin: 04/01/17 12:37 Dose: 12.5 mg Clonazepam (Klonopin) 1 mg PO BID [facility] Last Admin: 04/01/17 12:35 Dose: 1 mg Enoxaparin Sodium (Lovenox) 40 mg SUB-Q QDAY@1000 [facility] Last Admin: 04/01/17 12:32 Dose: 40 mg Furosemide (Lasix) 20 mg PO QDAY [facility] Last Admin: 04/01/17 12:35 Dose: 20 mg Hydromorphone HCl (Dilaudid) 0.5 mg IV Q3H PRN PRN Reason: Pain , Severe (7-10) Levofloxacin/Dextrose (Levaquin 750mg/150ml) 750 mg in 150 mls @ 100 mls/hr IV Q48H [facility] PRN Reason: Protocol Losartan Potassium (Cozaar) 50 mg PO QDAY [facility] Last Admin: 04/01/17 12:38 Dose: 50 mg Magnesium Hydroxide (Milk Of Magnesia) 30 ml PO Q4H PRN PRN Reason: Constipation Methylprednisolone Sodium Succinate (Solu-Medrol) 60 mg IV Q8HR [facility] Last Admin: 04/01/17 05:42 Dose: 60 mg Ondansetron HCl (Zofran) 4 mg IV Q8H PRN PRN Reason: N/V unrelieved by Reglan Potassium Chloride (K-Dur) 10 meq PO QDAY [facility] Last Admin: 04/01/17 12:44 Dose: 10 meq Quetiapine Fumarate (Seroquel) 400 mg PO BID [facility] Last Admin: 04/01/17 12:44 Dose: 400 mg Sertraline HCl (Zoloft) 200 mg PO DAILY [facility] Last Admin: 04/01/17 12:43 Dose: 200 mg Review of Systems All systems: negative Physical Examination Vital signs: Vital Signs Temp Pulse Resp BP Pulse Ox 98.6 F 94 H 16 113/64 98 03/30/17 13:16 03/30/17 13:16 03/30/17 13:16 03/30/17 13:16 03/30/17 13:16 General appearance: no acute distress, alert Eyes: non-icteric ENT: oropharynx moist Neck: supple Effort: normal Ascultation: Bilateral: diminished breath sounds Percussion: Bilateral: not dull Tactile fremitus: Bilateral: normal Cardiovascular: regular rate and rhythm Gastrointestinal: normoactive bowel sounds, other (morbid obesity) Results - Laboratory Findings CBC and BMP: 04/01/17 04:52 04/01/17 04:52 ABG POC ABG pH 7.328 (7.35-7.45) L 03/30/17 16:57 POC ABG pCO2 48.1 (35-45) H 03/30/17 16:57 POC ABG pO2 101 (80-105) 03/30/17 16:57 POC ABG HCO3 25.3 03/30/17 16:57 POC ABG Total CO2 27 03/30/17 16:57 POC ABG O2 Sat 97 03/30/17 16:57 PT/INR, D-dimer PT 13.6 Sec. (12.2-14.9) 03/30/17 13:29 INR 1.05 (0.87-1.13) 03/30/17 13:29 Abnormal lab findings: Abnormal Labs 03/31/17 04/01/17 04/01/17 05:32 04:52 04:52 WBC 13.3 H Lymph % (Auto) 7.7 L Lymph # 1.0 L Seg Neutrophils % 87.1 H Seg Neutrophils # 11.6 H BUN 25 H 21 H Creatinine 1.4 H Glucose 148 H 170 H AST 60 H 55 H Albumin 3.5 L 3.5 L - Diagnostic Findings Chest x-ray: image reviewed (clear) Assessment and Plan 66 y/o female with chronic respiratory failure, steroid dependence, admitted with COPD exacerbation. 1. Patient with very limited mobility at home. Hospice brochure is at bedside. Not sure what outcome will be. May need to consider rehab, something like LTACH for further care until able to get back home. 2. Continue steroids at current dosing, will start to taper in next 24-48 hours 3. Continue supplemental O2 4. Daily net negative state is needed 5. Duonebs are scheduled, assume this is home regimen, continue for now. Thank you for this consult, will continue to follow along with you.
[2017-04-01] MEDS ORDERED: LEVAQUIN 750MG/150ML 750 MG/150 ML BAG IV SCH (22:00)
--- NOTE | 2017-04-02 03:23 | Consultation ---
CARDIOLOGY EVALUATION HISTORY OF PRESENT ILLNESS: The patient is a 66-year-old female, who comes to the Emergency Room complaining about difficulty in breathing that started on Friday and she also had mild chest discomfort. She is known to have COPD and has been on home oxygen. The patient came to the Emergency Room because of worsening difficulty in breathing and hence she is admitted for further management. The patient is known to have hypertension from 2003. The patient is known to have hyperlipidemia, but currently on no medications for the same. No previous myocardial infarction. No previous coronary interventions. She apparently had a cardiac catheterization done _at [facility] in 2003 with normal coronary anatomy during that evaluation. The patient is a nonsmoker. Today, she is feeling better and her dyspnea has improved. REVIEW OF SYSTEMS: HEAD, EYES, EARS, NOSE AND THROAT: No symptoms. ENDOCRINE: No history of diabetes or thyroid problems. GASTROINTESTINAL: No abdominal pain, nausea, or vomiting. Bowel habits have been regular. No history of peptic ulcer disease or gallbladder disease. GENITOURINARY: No symptoms. CENTRAL NERVOUS SYSTEM: No history of cerebrovascular accident or convulsive disorder. PERSONAL HISTORY: Nonsmoker, nonalcoholic, and does not use any drugs. DRUG ALLERGIES: PENICILLIN AND POSSIBLY CODEINE. PHYSICAL EXAMINATION: GENERAL: Adult obese female, on oxygen, in no acute distress. VITAL SIGNS: Blood pressure 175/79. Pulse 90, respirations 20. HEENT: Unremarkable. NECK: Supple. No thyromegaly. Both carotids are palpable and equal. Neck veins are flat. CHEST: Symmetrical. LUNGS: Scattered rhonchi present. CARDIOVASCULAR: S1 and S2 are heard well. Heart tones are rather distant. No S3. No significant murmurs. ABDOMEN: Obese, nontender. No hepatosplenomegaly. EXTREMITIES: No significant edema or calf tenderness. LABORATORY DATA: WBC 13.3, hemoglobin 12.6, hematocrit 39. Blood gases; pH 7.328, pCO2 of 48, pO2 of 101. Sodium 140, potassium 4.3, BUN 21, creatinine 0.9, . Total cholesterol 200, LDL 123, HDL 62. Troponin 0.072 and 0.048. EKG is sinus rhythm, no acute abnormalities are present. IMPRESSION: 1. Dyspnea with questionable history of congestive heart failure. 2. Atypical chest discomfort. 3. Mildly abnormal troponin. 4. Obesity. 5. Chronic obstructive pulmonary disease. 6. Hypertension. The patient is seen for cardiac evaluation. Her problem appears to be related more to pulmonary issues; however, we will obtain further cardiac evaluation and monitor closely with you. Thank you for allowing me to participate in the care of this pleasant lady. JOB# [id number] JATINDER/CHARLES IVY
[2017-04-02] MEDS: DUONEB *Not for PRN Use IH SCH ×5 (04:30→20:22)
[2017-04-02] MEDS: DILAUDID IV PRN ×3 (07:50→17:30)
--- NOTE | 2017-04-02 08:12 | Progress Note ---
Assessment and Plan 66 y/o female with chronic respiratory failure, steroid dependence, admitted with COPD exacerbation. No new recommendations for this am. See below. Will start to taper steroids tomorrow. 1. Patient with very limited mobility at home. Hospice brochure is at bedside. Not sure what outcome will be. May need to consider rehab, something like LTACH for further care until able to get back home. 2. Continue steroids at current dosing, will start to taper in next 24-48 hours 3. Continue supplemental O2 4. Daily net negative state is needed 5. Duonebs are scheduled, assume this is home regimen, continue for now. Thank you for this consult, will continue to follow along with you. Subjective Date of service: 04/02/17 Principal diagnosis: Respiratory failure, COPD exercebation Interval history: No acute events overnight. Objective Vital Signs - 12hr 04/01/17 04/01/17 04/01/17 20:12 21:00 21:32 Temperature 97.7 F Pulse Rate 87 83 Pulse Rate [ Anterior Bilateral Throughout] Respiratory 20 20 Rate Respiratory Rate [Anterior Bilateral Throughout] Blood Pressure 136/83 O2 Sat by Pulse 98 Oximetry 04/01/17 04/02/17 04/02/17 23:59 00:08 00:31 Temperature 97.9 F Pulse Rate 80 Pulse Rate [ 87 82 Anterior Bilateral Throughout] Respiratory 18 Rate Respiratory 16 18 Rate [Anterior Bilateral Throughout] Blood Pressure 132/78 O2 Sat by Pulse 97 Oximetry 04/02/17 04:56 Temperature 98.1 F Pulse Rate 90 Pulse Rate [ Anterior Bilateral Throughout] Respiratory 18 Rate Respiratory Rate [Anterior Bilateral Throughout] Blood Pressure 154/76 O2 Sat by Pulse 96 Oximetry Constitutional: no acute distress, alert Eyes: non-icteric ENT: oropharynx moist Neck: supple Effort: normal Ascultation: Bilateral: diminished breath sounds Percussion: Bilateral: not dull Tactile fremitus: Bilateral: normal Cardiovascular: regular rate and rhythm Gastrointestinal: normoactive bowel sounds, other (morbid obesity) CBC and BMP: 04/01/17 04:52 04/01/17 04:52 ABG, PT/INR, D-dimer: ABG POC ABG pH 7.328 (7.35-7.45) L 03/30/17 16:57 POC ABG pCO2 48.1 (35-45) H 03/30/17 16:57 POC ABG pO2 101 (80-105) 03/30/17 16:57 POC ABG HCO3 25.3 03/30/17 16:57 POC ABG Total CO2 27 03/30/17 16:57 POC ABG O2 Sat 97 03/30/17 16:57 PT/INR, D-dimer PT 13.6 Sec. (12.2-14.9) 03/30/17 13:29 INR 1.05 (0.87-1.13) 03/30/17 13:29 Abnormal lab findings: Abnormal Labs 03/31/17 04/01/17 04/01/17 05:32 04:52 04:52 WBC 13.3 H Lymph % (Auto) 7.7 L Lymph # 1.0 L Seg Neutrophils % 87.1 H Seg Neutrophils # 11.6 H BUN 25 H 21 H Creatinine 1.4 H Glucose 148 H 170 H AST 60 H 55 H Albumin 3.5 L 3.5 L
[2017-04-02] MEDS: LOVENOX SUB-Q SCH ×2 (08:37→10:13)
[2017-04-02] MEDS: K-DUR PO SCH ×2 (08:38→10:13)
[2017-04-02] MEDS: LASIX PO SCH ×2 (08:38→10:13)
[2017-04-02] MEDS: NORVASC PO SCH ×2 (08:38→11:02)
[2017-04-02] MEDS: COZAAR PO SCH ×2 (08:38→10:13)
[2017-04-02] MEDS: ZOLOFT PO SCH ×2 (08:38→10:14)
[2017-04-02] MEDS: COREG PO SCH ×2 (08:39→10:12)
[2017-04-02] MEDS: ASPIRIN PO SCH ×2 (08:39→10:12)
--- NOTE | 2017-04-02 08:45 | Progress Note ---
Assessment and Plan - Acute hypercapneoic respiratory failure - COPD Exercebation - Acute hypercapneic - Acute renal failure from tubular necrosis - Elevated troponin levels with no chest pain - Hyperlipidemia Plan Admit to tele Continue with Bronchodilators, Provona, Suplemtnal oxygen IV hydration EKG, ASA, carvedilol, Serial Braydon Commence Statin DVT PPx with Lovenox and GI with pepcid Subjective Date of service: 04/02/17 Principal diagnosis: Respiratory failure, COPD exercebation Interval history: Feeling better but still short of breath Objective - Constitutional Vitals: Vital Signs - 12hr 04/01/17 04/01/17 04/01/17 21:00 21:32 23:59 Temperature 97.7 F Pulse Rate 87 83 Pulse Rate [ 87 Anterior Bilateral Throughout] Respiratory 20 Rate Respiratory 16 Rate [Anterior Bilateral Throughout] Blood Pressure 136/83 O2 Sat by Pulse 98 Oximetry 04/02/17 04/02/17 04/02/17 00:08 00:31 04:56 Temperature 97.9 F 98.1 F Pulse Rate 80 90 Pulse Rate [ 82 Anterior Bilateral Throughout] Respiratory 18 18 Rate Respiratory 18 Rate [Anterior Bilateral Throughout] Blood Pressure 132/78 154/76 O2 Sat by Pulse 97 96 Oximetry 04/02/17 04/02/17 04/02/17 08:15 08:25 08:38 Temperature Pulse Rate Pulse Rate [ 90 Anterior Bilateral Throughout] Respiratory Rate Respiratory 18 Rate [Anterior Bilateral Throughout] Blood Pressure 180/60 O2 Sat by Pulse 98 Oximetry 04/02/17 04/02/17 08:39 08:40 Temperature Pulse Rate Pulse Rate [ 92 H Anterior Bilateral Throughout] Respiratory Rate Respiratory 20 Rate [Anterior Bilateral Throughout] Blood Pressure 180/60 O2 Sat by Pulse Oximetry General appearance: Present: no acute distress, well-nourished - EENT Eyes: PERRL, EOM intact - Neck Neck: supple, normal ROM - Respiratory Respiratory effort: normal Respiratory: bilateral: diminished - Cardiovascular Rhythm: regular Heart Sounds: Present: S1 & S2. Absent: gallop, rub Extremities: pulses intact, No edema, Full ROM - Gastrointestinal General gastrointestinal: Present: soft, non-tender, non-distended, normal bowel sounds - Integumentary Integumentary: clear, warm, dry - Musculoskeletal Musculoskeletal: 1, strength equal bilaterally - Neurologic Neurologic: moves all extremities - Psychiatric Psychiatric: memory intact, appropriate mood/affect, intact judgment & insight - Labs CBC & Chem 7: 04/01/17 04:52 04/01/17 04:52
--- NOTE | 2017-04-02 10:25 | Progress Note ---
Assessment and Plan Assessment: COPD exacerbation Acute respiratory failure Chest pain, atypical - currently resolved. Elevated troponin - flat; ECG with NAF; currently nonspecific in setting of infection and accelerated HTN. Accelerated HTN HLP Morbid obesity Plan: Currently stable cardiac status. Optimize anti-hypertensive regimen - amlodipine initiated today per primary. D/ c coreg and convert to lopressor (beta selective) in setting of COPD. No indication for repeat echo/stress at this time. The patient has been seen in conjunction with Dr. JUMA Solitario who agrees with the assessment and plan of care. Subjective Date of service: 04/02/17 Principal diagnosis: Respiratory failure, COPD exercebation Interval history: Pt resting comfortably in bed, states her SOB is mildly improved. BPs elevated. Objective Last Vital Signs Temp 98.1 F 04/02/17 04:56 Pulse 92 H 04/02/17 08:40 Resp 20 04/02/17 08:40 BP 180/60 04/02/17 08:39 Pulse Ox 98 04/02/17 08:25 - Physical Examination General: Appears Well HEENT: Positive: PERRL, Normocephaly, Mucus Membranes Moist Neck: Positive: neck supple, trachea midline Cardiac: Positive: Reg Rate and Rhythm, S1/S2, Systolic Murmur Lungs: Positive: Decreased Breath Sounds Neuro: Positive: Grossly Intact, Cranial Nerve 2-12 Intact Abdomen: Positive: Unremarkable, Soft, Active Bowel Sounds. Negative: Tender Skin: Positive: Clear. Negative: Rash, Wound Musculoskeletal: No Fluid Collection, No Pain, Normal Range of Motion Extremities: Absent: edema - Imaging and Cardiology EKG: image reviewed Pharmacologic stress test: report reviewed (01/2014: PET scan negative for ischemia, EF 65%) Echo: report reviewed (09/2016: EF 60 - 65%, mild LVH, mild TR) - Telemetry EKG Rhythm: Sinus Rhythm
[2017-04-02] MEDS: LEVAQUIN 750MG/150ML 750 MG/150 ML BAG IV SCH (12:20)
[2017-04-02] MEDS: LOPRESSOR PO SCH (22:15)
[2017-04-03] MEDS: DUONEB *Not for PRN Use IH SCH ×6 (00:36→19:44)
[2017-04-03] MEDS: COZAAR PO SCH (09:02)
[2017-04-03] MEDS: ASPIRIN PO SCH (09:03)
[2017-04-03] MEDS: LASIX PO SCH (09:03)
[2017-04-03] MEDS: LOPRESSOR PO SCH ×2 (09:03→22:19)
[2017-04-03] MEDS: ZOLOFT PO SCH (09:04)
[2017-04-03] MEDS: K-DUR PO SCH (09:04)
[2017-04-03] MEDS: LOVENOX SUB-Q SCH (09:05)
[2017-04-03] MEDS: NORVASC PO SCH (09:05)
--- NOTE | 2017-04-03 09:36 | Progress Note ---
Assessment and Plan - Acute hypercapneoic respiratory failure - COPD Exercebation - Acute renal failure from tubular necrosis improving - Elevated troponin levels with no chest pain - Hyperlipidemia Plan Continue with Bronchodilators, Provona, Supplemental oxygen Wean steriod IV hydration EKG, ASA, carvedilol, Serial Braydon Commence Statin DVT PPx with Lovenox and GI with pepcid Transfer to LTAC Subjective Date of service: 04/03/17 Principal diagnosis: Respiratory failure, COPD exercebation Interval history: Feeling better still short of breath.No chest pain. Objective - Constitutional Vitals: Vital Signs - 12hr 04/02/17 04/02/17 04/03/17 22:00 22:15 00:27 Temperature 98.1 F Pulse Rate 86 86 86 Pulse Rate [ Anterior Bilateral Throughout] Pulse Rate [ Left Radial] Respiratory 18 Rate Respiratory Rate [Anterior Bilateral Throughout] Blood Pressure 171/76 170/78 O2 Sat by Pulse 98 Oximetry 04/03/17 04/03/17 04/03/17 04:25 07:31 07:37 Temperature 97.8 F 98.6 F Pulse Rate 86 78 Pulse Rate [ 92 H Anterior Bilateral Throughout] Pulse Rate [ Left Radial] Respiratory 18 16 Rate Respiratory 16 Rate [Anterior Bilateral Throughout] Blood Pressure 169/77 190/90 O2 Sat by Pulse 99 98 97 Oximetry 04/03/17 04/03/17 04/03/17 09:02 09:03 09:05 Temperature Pulse Rate 86 86 86 Pulse Rate [ Anterior Bilateral Throughout] Pulse Rate [ Left Radial] Respiratory Rate Respiratory Rate [Anterior Bilateral Throughout] Blood Pressure 190/90 190/90 190/90 O2 Sat by Pulse Oximetry 04/03/17 09:10 Temperature Pulse Rate Pulse Rate [ Anterior Bilateral Throughout] Pulse Rate [ 86 Left Radial] Respiratory 16 Rate Respiratory Rate [Anterior Bilateral Throughout] Blood Pressure O2 Sat by Pulse 94 Oximetry General appearance: Present: no acute distress, well-nourished - EENT Eyes: PERRL, EOM intact - Neck Neck: supple, normal ROM - Respiratory Respiratory effort: normal Respiratory: bilateral: CTA - Cardiovascular Rhythm: regular Heart Sounds: Present: S1 & S2. Absent: gallop, rub Extremities: pulses intact, No edema, normal color, Full ROM - Gastrointestinal General gastrointestinal: Present: soft, non-tender, non-distended, normal bowel sounds - Genitourinary Female genitourinary: normal - Integumentary Integumentary: clear - Musculoskeletal Musculoskeletal: generalized weakness - Neurologic Neurologic: moves all extremities - Psychiatric Psychiatric: appropriate mood/affect, intact judgment & insight - Labs CBC & Chem 7: 04/01/17 04:52 04/01/17 04:52
--- NOTE | 2017-04-03 10:54 | Progress Note ---
Assessment and Plan Assessment: COPD exacerbation Acute respiratory failure Chest pain, atypical - currently resolved. Elevated troponin - flat; ECG with NAF; currently nonspecific in setting of infection and accelerated HTN. Accelerated HTN HLP Morbid obesity Plan: Currently stable cardiac status. Optimize anti-hypertensive regimen - initiate hydralazine, 25mg PO TID. The patient has been seen in conjunction with Dr. Sami Solitario who agrees with the assessment and plan of care. Subjective Date of service: 04/03/17 Principal diagnosis: Respiratory failure, COPD exercebation Interval history: Pt resting comfortably in bed, states her SOB is much better. BPs elevated. Objective Last Vital Signs Temp 98.6 F 04/03/17 07:31 Pulse 86 04/03/17 09:10 Resp 16 04/03/17 09:10 BP 190/90 04/03/17 09:05 Pulse Ox 94 04/03/17 09:10 - Physical Examination General: Appears Well HEENT: Positive: PERRL, Normocephaly, Mucus Membranes Moist Neck: Positive: neck supple, trachea midline Cardiac: Positive: Reg Rate and Rhythm, S1/S2 Lungs: Positive: Decreased Breath Sounds Neuro: Positive: Grossly Intact, Cranial Nerve 2-12 Intact Abdomen: Positive: Unremarkable, Soft, Active Bowel Sounds. Negative: Tender Skin: Positive: Clear. Negative: Rash, Wound Musculoskeletal: No Fluid Collection, No Pain, Normal Range of Motion Extremities: Absent: edema - Imaging and Cardiology EKG: image reviewed Echo: report reviewed (09/2016: EF 60 - 65%, mild LVH, mild TR) - Telemetry EKG Rhythm: Sinus Rhythm
--- NOTE | 2017-04-03 14:22 | Progress Note ---
Assessment and Plan 66 y/o female with chronic respiratory failure, steroid dependence, admitted with COPD exacerbation. 1. Will decrease steroids to [id number] dosing 2. Agree with PT/OT 3. Continue supplemental O2 4. Daily net negative state is needed 5. Duonebs are scheduled, assume this is home regimen, continue for now. Thank you for this consult, will continue to follow along with you. Subjective Date of service: 04/03/17 Principal diagnosis: Respiratory failure, COPD exercebation Interval history: No acute events. per patient feels better. did therapy today and walked a significant distance. No family at bedside. Objective Vital Signs - 12hr 04/03/17 04/03/17 04/03/17 04:25 07:31 07:37 Temperature 97.8 F 98.6 F Pulse Rate 86 78 Pulse Rate [ 92 H Anterior Bilateral Throughout] Pulse Rate [ Left Radial] Respiratory 18 16 Rate Respiratory 16 Rate [Anterior Bilateral Throughout] Blood Pressure 169/77 190/90 O2 Sat by Pulse 99 98 97 Oximetry 04/03/17 04/03/17 04/03/17 07:50 09:02 09:03 Temperature Pulse Rate 86 86 Pulse Rate [ 96 H Anterior Bilateral Throughout] Pulse Rate [ Left Radial] Respiratory Rate Respiratory 16 Rate [Anterior Bilateral Throughout] Blood Pressure 190/90 190/90 O2 Sat by Pulse Oximetry 04/03/17 04/03/17 04/03/17 09:05 09:10 10:00 Temperature Pulse Rate 86 86 Pulse Rate [ Anterior Bilateral Throughout] Pulse Rate [ 86 Left Radial] Respiratory 16 Rate Respiratory Rate [Anterior Bilateral Throughout] Blood Pressure 190/90 O2 Sat by Pulse 94 Oximetry Constitutional: no acute distress, alert Eyes: non-icteric ENT: oropharynx moist Neck: supple Effort: normal Ascultation: Bilateral: diminished breath sounds Percussion: Bilateral: not dull Tactile fremitus: Bilateral: normal Cardiovascular: regular rate and rhythm Gastrointestinal: normoactive bowel sounds, other (morbid obesity) CBC and BMP: 04/01/17 04:52 04/01/17 04:52 ABG, PT/INR, D-dimer: ABG POC ABG pH 7.328 (7.35-7.45) L 03/30/17 16:57 POC ABG pCO2 48.1 (35-45) H 03/30/17 16:57 POC ABG pO2 101 (80-105) 03/30/17 16:57 POC ABG HCO3 25.3 03/30/17 16:57 POC ABG Total CO2 27 03/30/17 16:57 POC ABG O2 Sat 97 03/30/17 16:57 PT/INR, D-dimer PT 13.6 Sec. (12.2-14.9) 03/30/17 13:29 INR 1.05 (0.87-1.13) 03/30/17 13:29 Abnormal lab findings: Abnormal Labs 03/31/17 04/01/17 04/01/17 05:32 04:52 04:52 WBC 13.3 H Lymph % (Auto) 7.7 L Lymph # 1.0 L Seg Neutrophils % 87.1 H Seg Neutrophils # 11.6 H BUN 25 H 21 H Creatinine 1.4 H Glucose 148 H 170 H AST 60 H 55 H Albumin 3.5 L 3.5 L
[2017-04-03] MEDS: APRESOLINE PO SCH ×2 (15:35→22:20)
[2017-04-03] MEDS: LEVAQUIN 750MG/150ML 750 MG/150 ML BAG IV SCH (15:37)
[2017-04-04] MEDS: DUONEB *Not for PRN Use IH SCH ×4 (00:40→14:55)
[2017-04-04] MEDS: APRESOLINE PO SCH (05:12)
[2017-04-04 06:11] LABS: Basophils % (Auto) 0.2 % (0.0-1.8); Hematocrit 39.4 % (30.3-42.9); Hemoglobin 12.9 gm/dl (10.1-14.3); Mean Corpuscular HGB Conc 33 % (30-34); Mean Corpuscular Hemoglobin 30 pg (28-32); Mean Corpuscular Volume 92 fl (79-97); Platelet Count 200 K/mm3 (140-440); Red Cell Distribution Width 14.2 % (13.2-15.2); White Blood Count 12.2 K/mm3 (4.5-11.0)
[2017-04-04 06:29] LABS: Alanine Aminotransferase 30 units/L (7-56); Albumin 3.6 g/dL (3.9-5); Albumin/Globulin Ratio 1.1 %; Alkaline Phosphatase 56 units/L (35-129); Anion Gap 17 mmol/L; Blood Urea Nitrogen 27 mg/dL (7-17); Calcium 8.9 mg/dL (8.4-10.2); Carbon Dioxide 25 mmol/L (22-30); Chloride 101.4 mmol/L (98-107); Glucose 153 mg/dL (65-100); Potassium 4.1 mmol/L (3.6-5.0); Sodium 139 mmol/L (137-145); Total Protein 6.9 g/dL (6.3-8.2)
--- NOTE | 2017-04-04 07:20 | Progress Note ---
Assessment and Plan 66 y/o female with chronic respiratory failure, steroid dependence, admitted with COPD exacerbation. 1. Changed steroids to q12 this am 2. Agree with PT/OT 3. Continue supplemental O2 4. Daily net negative state is needed 5. Duonebs are scheduled, assume this is home regimen, continue for now. Thank you for this consult, will continue to follow along with you. Subjective Date of service: 04/04/17 Principal diagnosis: Respiratory failure, COPD exercebation Interval history: No acute events overnight. Objective Vital Signs - 12hr 04/03/17 04/03/17 04/03/17 19:45 19:55 20:00 Temperature 97.7 F Pulse Rate 90 Pulse Rate [ 90 92 H Anterior Bilateral Throughout] Respiratory 18 Rate Respiratory 16 18 Rate [Anterior Bilateral Throughout] Blood Pressure 134/76 O2 Sat by Pulse 98 Oximetry 04/03/17 04/03/17 04/03/17 21:34 22:00 22:19 Temperature Pulse Rate 94 H 91 H Pulse Rate [ Anterior Bilateral Throughout] Respiratory Rate Respiratory Rate [Anterior Bilateral Throughout] Blood Pressure 134/90 O2 Sat by Pulse 98 Oximetry 04/03/17 04/04/17 04/04/17 22:20 00:00 04:00 Temperature 98.4 F 97.4 F L Pulse Rate 91 H 86 83 Pulse Rate [ Anterior Bilateral Throughout] Respiratory 20 20 Rate Respiratory Rate [Anterior Bilateral Throughout] Blood Pressure 134/76 137/74 178/88 O2 Sat by Pulse 94 97 Oximetry 04/04/17 05:12 Temperature Pulse Rate 83 Pulse Rate [ Anterior Bilateral Throughout] Respiratory Rate Respiratory Rate [Anterior Bilateral Throughout] Blood Pressure 178/88 O2 Sat by Pulse Oximetry Constitutional: no acute distress, alert Eyes: non-icteric ENT: oropharynx moist Neck: supple Effort: normal Ascultation: Bilateral: diminished breath sounds Percussion: Bilateral: not dull Tactile fremitus: Bilateral: normal Cardiovascular: regular rate and rhythm Gastrointestinal: normoactive bowel sounds, other (morbid obesity) CBC and BMP: 04/04/17 04:56 04/04/17 04:56 ABG, PT/INR, D-dimer: ABG POC ABG pH 7.328 (7.35-7.45) L 03/30/17 16:57 POC ABG pCO2 48.1 (35-45) H 03/30/17 16:57 POC ABG pO2 101 (80-105) 03/30/17 16:57 POC ABG HCO3 25.3 03/30/17 16:57 POC ABG Total CO2 27 03/30/17 16:57 POC ABG O2 Sat 97 03/30/17 16:57 PT/INR, D-dimer PT 13.6 Sec. (12.2-14.9) 03/30/17 13:29 INR 1.05 (0.87-1.13) 03/30/17 13:29 Abnormal lab findings: Abnormal Labs 03/31/17 04/01/17 04/01/17 05:32 04:52 04:52 WBC 13.3 H Lymph % (Auto) 7.7 L Lymph # 1.0 L Seg Neutrophils % 87.1 H Seg Neutrophils # 11.6 H BUN 25 H 21 H Creatinine 1.4 H Glucose 148 H 170 H AST 60 H 55 H Albumin 3.5 L 3.5 L 04/04/17 04/04/17 04:56 04:56 WBC 12.2 H Lymph % (Auto) 6.9 L Lymph # 0.8 L Seg Neutrophils % 87.4 H Seg Neutrophils # 10.6 H BUN 27 H Creatinine Glucose 153 H AST Albumin 3.6 L
--- NOTE | 2017-04-04 09:27 | Discharge Summary ---
Providers - Providers Date of Admission: 03/30/17 21:03 Date of discharge: 04/04/17 Attending physician: RYAN WATTS 03/31/17 09:05 Consult to Physician [CONS] Routine Consulting Provider: MIRNA BAKER Reason For Exam: Antoni Place consult to:: Antoni Notified:: PLEASE CALL MD IN AM Phone number called:: [phone] Was contact made?: Yes If yes, spoke with:: Rachel Castellanos called:: 09:45 04/01/17 09:28 Consult to Physician [CONS] Routine Consulting Provider: PARVEZ FLOYD Reason For Exam: evelated cardiac enzymes Place consult to:: Glory Notified:: YES Was contact made?: Yes If yes, spoke with:: MIGUELINA 04/02/17 08:52 Physical Therapy Evaluation and Treat [CONS] Routine Comment: Reason For Exam: skilled needs Primary care physician: RYAN WATTS Hospitalization Reason for admission: Acute respiratory failure, COPD exercebation Condition: Stable Pertinent studies: CXR showed atelectasis CT brain was normal Procedures: none Hospital course: Pt is a 66 y/o lady who has a history of CHF, CAD s/p stent, COPD, dependent on 2 L oxygen at home under home hospice but was discharged from same, presented to the ED with progressively worsening shortness of breath. Has no fever or chills. Had no Leukocytosis. Had no chest pain or diaphoresis. Her symptoms were not improved with her home nebulizer treatment. Pt had been on prednisone for her advance COPD but ran out about 1 week prior. Has occasional sharif lower extremities swelling. At the ER, pt was given further nebulizer treatment of beta agonist. Symptoms persisted. CXR showed left lower lobe atelecesis versus infiltrate but had no leukocytosis. Pt was admitttd and commnece on iv solumedrol, duonebs, iv levaquin and supplemental oxygen. Pulm conuslt was obtained. Had elevated cardiez enzxumes but no chest pain. Cardiology cosult obtianed. conservative mx advised. Symptoms improved. Wean down on solumedrol. Pt is therefore being discharged to follow up with PCP and pulm. Disposition: [id number]/[place]-06 HOME UNDER HOME [facility] Core Measure Documentation - Palliative Care Palliative Care/ Comfort Measures: Hospice Care Exam - Constitutional Vitals: Temp Pulse Resp BP Pulse Ox 98.2 F 83 20 168/100 95 04/04/17 08:18 04/04/17 08:18 04/04/17 08:18 04/04/17 08:18 04/04/17 08:18 General appearance: Present: no acute distress, well-nourished - EENT Eyes: Present: PERRL - Neck Neck: Present: supple, normal ROM - Respiratory Respiratory effort: normal Respiratory: bilateral: diminished - Cardiovascular Heart Sounds: Present: S1 & S2. Absent: rub, click - Extremities Extremities: pulses symmetrical, No edema Peripheral Pulses: within normal limits - Abdominal General gastrointestinal: Present: soft, non-tender, non-distended, normal bowel sounds - Integumentary Integumentary: Present: clear, warm, dry - Musculoskeletal Musculoskeletal: gait normal, strength equal bilaterally - Psychiatric Psychiatric: appropriate mood/affect, intact judgment & insight - Neurologic Neurologic: CNII-XII intact, moves all extremities Plan Activity: advance as tolerated Weight Bearing Status: Non-Weight Bearing Diet: regular Special Instructions: no heavy lifting, home oxygen via Follow up with: RYAN WATTS MD [Primary Care Provider] - 7 Days Prescriptions: amLODIPine [Norvasc] 10 mg PO QDAY #30 tablet Aspirin [Aspirin BABY CHEW TAB] 81 mg PO QDAY #90 tab.chew clonazePAM [KlonoPIN] 1 mg PO BID #60 tablet Furosemide [Lasix TAB] 20 mg PO QDAY #30 tablet hydrALAZINE [Apresoline TAB] 25 mg PO Q8HR #90 tablet Ipratropium [Atrovent NEB] 0.5 mg IH Q8HRT PRN #100 nebu PRN Reason: Shortness Of Breath Losartan [Cozaar] 50 mg PO QDAY #30 tablet Metoprolol Tartrate 75 mg PO QAM #30 tablet Potassium Chloride [K-Dur] 10 meq PO QDAY #30 tablet predniSONE [Deltasone] 10 mg PO QDAY #60 tab QUEtiapine [SEROquel] 400 mg PO BID #60 tablet Sertraline [Zoloft] 200 mg PO DAILY #30 tablet
[2017-04-04] MEDS: COZAAR PO SCH (10:56)
[2017-04-04] MEDS: ASPIRIN PO SCH (10:56)
[2017-04-04] MEDS: LASIX PO SCH (10:57)
[2017-04-04] MEDS: NORVASC PO SCH (10:57)
[2017-04-04] MEDS: LOPRESSOR PO SCH (10:57)
[2017-04-04] MEDS: K-DUR PO SCH (10:57)
[2017-04-04] MEDS: ZOLOFT PO SCH (10:58)
[2017-04-04] MEDS: LOVENOX SUB-Q SCH (11:09)
[2017-04-04 11:12] VITALS: BP 137/83
--- NOTE | 2017-04-04 12:28 | Progress Note ---
Assessment and Plan Assessment: COPD exacerbation Acute respiratory failure Chest pain, atypical - currently resolved. Elevated troponin - flat; ECG with NAF; currently nonspecific in setting of infection and accelerated HTN. Accelerated HTN HLP Morbid obesity Plan: Currently stable cardiac status. Pt may discharge from cardiology standpoint. Follow up in our [place] office with Dr. Pepe on 04/14/2017 @ 8:45AM. The patient has been seen in conjunction with Dr. Sami Solitario who agrees with the assessment and plan of care. Subjective Date of service: 04/04/17 Principal diagnosis: Respiratory failure, COPD exercebation Interval history: Pt resting comfortably in bed, no complaints. BPs improved. Awaiting discharge today. Objective Last Vital Signs Temp 98.0 F 04/04/17 11:10 Pulse 78 04/04/17 11:37 Resp 18 04/04/17 11:37 BP 137/83 04/04/17 11:10 Pulse Ox 99 04/04/17 11:20 - Physical Examination General: Appears Well HEENT: Positive: PERRL, Normocephaly, Mucus Membranes Moist Neck: Positive: neck supple, trachea midline Cardiac: Positive: Reg Rate and Rhythm, S1/S2 Lungs: Positive: Decreased Breath Sounds Neuro: Positive: Grossly Intact, Cranial Nerve 2-12 Intact Abdomen: Positive: Unremarkable, Soft, Active Bowel Sounds. Negative: Tender Skin: Positive: Clear. Negative: Rash, Wound Musculoskeletal: No Fluid Collection, No Pain, Normal Range of Motion Extremities: Absent: edema - Labs and Meds Cardiac Enzymes 04/04/17 Range/Units 04:56 AST 30 (5-40) units/L CBC 04/04/17 Range/Units 04:56 WBC 12.2 H (4.5-11.0) K/mm3 RBC 4.30 (3.65-5.03) M/mm3 Hgb 12.9 (10.1-14.3) gm/dl Hct 39.4 (30.3-42.9) % Plt Count 200 (140-440) K/mm3 Lymph # 0.8 L (1.2-5.4) K/mm3 Saline # 0.7 (0.0-0.8) K/mm3 Eos # 0.0 (0.0-0.4) K/mm3 Baso # 0.0 (0.0-0.1) K/mm3 Comprehensive Metabolic Panel 04/04/17 Range/Units 04:56 Sodium 139 (137-145) mmol/L Potassium 4.1 (3.6-5.0) mmol/L Chloride 101.4 (98-107) mmol/L Carbon Dioxide 25 (22-30) mmol/L BUN 27 H (7-17) mg/dL Creatinine 1.0 (0.7-1.2) mg/dL Glucose 153 H (65-100) mg/dL Calcium 8.9 (8.4-10.2) mg/dL AST 30 (5-40) units/L ALT 30 (7-56) units/L Alkaline Phosphatase 56 (35-129) units/L Total Protein 6.9 (6.3-8.2) g/dL Albumin 3.6 L (3.9-5) g/dL - Imaging and Cardiology EKG: image reviewed Echo: report reviewed (09/2016: EF 60 - 65%, mild LVH, mild TR)
[2017-04-04] MEDS: LEVAQUIN 750MG/150ML 750 MG/150 ML BAG IV SCH (13:34)
== END 2017-04-04 16:02 | disposition hospice, home (50) | DRG 682 ==
LOC: ED 13:11 → 4A 21:03
PROVIDERS: ADMIT Internal Medicine; ATTEND Family Medicine
PROC: 4A033R1 Measurement of Arterial Saturation, Peripheral, Percutaneous Approach (ICD-10-PCS; principal; 2017-03-30)
DX: N17.0 Acute kidney failure with tubular necrosis (principal); J96.22 Acute and chronic respiratory failure with hypercapnia; J44.1 Chronic obstructive pulmonary disease with (acute) exacerbation; Z68.42 Body mass index [BMI] 45.0-49.9, adult; I11.0 Hypertensive heart disease with heart failure; I50.9 Heart failure, unspecified; I25.10 Atherosclerotic heart disease of native coronary artery without angina pectoris; J45.909 Unspecified asthma, uncomplicated; E66.01 Morbid (severe) obesity due to excess calories; E78.5 Hyperlipidemia, unspecified; Z95.5 Presence of coronary angioplasty implant and graft; Z88.0 Allergy status to penicillin; Z99.81 Dependence on supplemental oxygen; Z88.5 Allergy status to narcotic agent; Z79.82 Long term (current) use of aspirin; Z79.899 Other long term (current) drug therapy
CPT/HCPCS: 36415; 70450; 71010; 80048; 80053; 80061; 82803; 84484; 85025; 85610; 85670; 85730; 93005; 93010; 94640; 94760; 96374; G8978-GP; G8979-GP; J1170; J1650; J1956; J2920; J2930

== ENCOUNTER 2019-08-05 14:59 | Emergency (ER) | payer MEDICARE ==
[2019-08-05] MEDS ORDERED: ONDANSETRON 4 MG/2 ML INJ IV ONE (16:16)
[2019-08-05] MEDS ORDERED: MORPHINE 4 MG/1 ML INJ IV ONE (16:16)
[2019-08-05] MEDS ORDERED: MORPHINE 2 MG/1 ML INJ ONE (16:23)
--- NOTE | 2019-08-05 16:28 | Emergency Department Report ---
ED General Adult HPI - General Chief complaint: Fall Stated complaint: FALL Time Seen by Provider: 08/05/19 15:47 Source: patient, EMS Mode of arrival: Stretcher Limitations: Physical Limitation - History of Present Illness Initial comments: Patient presents to the emergency department status post a fall at home. Patient states she was making her bed and she tripped over a item slow-moving hitting her head on the dresser with questionable loss of consciousness. Patient complains of a throbbing headache but denies any neck pain. -: Sudden Location: head Radiation: non-radiation Severity scale (0 -10): 4 Quality: other (throbbing) Consistency: constant Improves with: none Worsens with: none Associated Symptoms: denies other symptoms Treatments Prior to Arrival: none - Related Data Previous Rx's Medication Instructions Recorded Last Taken Type amLODIPine 5 mg PO DAILY #30 tablet 09/15/15 03/30/17 Rx Aspirin [Aspirin BABY CHEW TAB] 81 mg PO QDAY #90 tab.chew 04/04/17 Unknown Rx Furosemide [Lasix TAB] 20 mg PO QDAY #30 tablet 04/04/17 Unknown Rx Ipratropium [Atrovent NEB] 0.5 mg IH Q8HRT PRN #100 nebu 04/04/17 Unknown Rx Losartan [Cozaar] 50 mg PO QDAY #30 tablet 04/04/17 Unknown Rx Metoprolol Tartrate 75 mg PO QAM #30 tablet 04/04/17 Unknown Rx Potassium Chloride [K-Dur] 10 meq PO QDAY #30 tablet 04/04/17 Unknown Rx QUEtiapine [SEROquel] 400 mg PO BID #60 tablet 04/04/17 Unknown Rx Sertraline [Zoloft] 200 mg PO DAILY #30 tablet 04/04/17 Unknown Rx amLODIPine 10 mg PO QDAY #30 tablet 04/04/17 Unknown Rx clonazePAM [KlonoPIN] 1 mg PO BID #60 tablet 04/04/17 Unknown Rx hydrALAZINE [Apresoline TAB] 25 mg PO Q8HR #90 tablet 04/04/17 Unknown Rx predniSONE [Deltasone] 10 mg PO QDAY #60 tab 04/04/17 Unknown Rx Butalb/Acetamin/Caff 50-325-40 1 tab PO Q6HR PRN #24 tab 08/05/19 Unknown Rx [Fioricet] Allergies Allergy/AdvReac Type Severity Reaction Status Date / Time penicillin G Allergy Itching Verified 12/23/14 14:13 codeine AdvReac Dizziness Verified 12/23/14 14:13 ED Review of Systems ROS: Stated complaint: FALL Other details as noted in HPI Comment: All other systems reviewed and negative Constitutional: denies: chills, fever Eyes: denies: eye pain, eye discharge, vision change ENT: denies: ear pain, throat pain Respiratory: denies: cough, shortness of breath, wheezing Cardiovascular: denies: chest pain, palpitations Endocrine: no symptoms reported Gastrointestinal: denies: abdominal pain, nausea, diarrhea Genitourinary: denies: urgency, dysuria, discharge Musculoskeletal: denies: back pain, joint swelling, arthralgia Skin: denies: rash, lesions Neurological: headache. denies: weakness, paresthesias Psychiatric: denies: anxiety, depression Hematological/Lymphatic: denies: easy bleeding, easy bruising ED Past Medical Hx - Past Medical History Hx Hypertension: Yes Hx Congestive Heart Failure: Yes Hx Diabetes: No Hx Asthma: Yes Hx COPD: Yes Hx HIV: No Additional medical history: CAD - Surgical History Hx Coronary Stent: Yes Additional Surgical History: stents, heart cath - Social History Smoking Status: Never Smoker - Medications Home Medications: Home Medications Medication Instructions Recorded Confirmed Last Taken Type amLODIPine 5 mg PO DAILY #30 tablet 09/15/15 03/30/17 03/30/17 Rx Aspirin [Aspirin BABY CHEW TAB] 81 mg PO QDAY #90 tab.chew 04/04/17 Unknown Rx Furosemide [Lasix TAB] 20 mg PO QDAY #30 tablet 04/04/17 Unknown Rx Ipratropium [Atrovent NEB] 0.5 mg IH Q8HRT PRN #100 nebu 04/04/17 Unknown Rx Losartan [Cozaar] 50 mg PO QDAY #30 tablet 04/04/17 Unknown Rx Metoprolol Tartrate 75 mg PO QAM #30 tablet 04/04/17 Unknown Rx Potassium Chloride [K-Dur] 10 meq PO QDAY #30 tablet 04/04/17 Unknown Rx QUEtiapine [SEROquel] 400 mg PO BID #60 tablet 04/04/17 Unknown Rx Sertraline [Zoloft] 200 mg PO DAILY #30 tablet 04/04/17 Unknown Rx amLODIPine 10 mg PO QDAY #30 tablet 04/04/17 Unknown Rx clonazePAM [KlonoPIN] 1 mg PO BID #60 tablet 04/04/17 Unknown Rx hydrALAZINE [Apresoline TAB] 25 mg PO Q8HR #90 tablet 04/04/17 Unknown Rx predniSONE [Deltasone] 10 mg PO QDAY #60 tab 04/04/17 Unknown Rx Butalb/Acetamin/Caff 50-325-40 1 tab PO Q6HR PRN #24 tab 08/05/19 Unknown Rx [Fioricet] ED Physical Exam - General Limitations: Physical Limitation General appearance: alert, in no apparent distress - Head Head exam: Present: normocephalic, other (abrasion to the bridge of the nose and to the lateral aspect of the forehead) - Eye Eye exam: Present: normal appearance, PERRL, EOMI - ENT ENT exam: Present: mucous membranes moist, other (no midline C-spine tenderness on exam) - Neck Neck exam: Present: normal inspection - Respiratory Respiratory exam: Present: normal lung sounds bilaterally. Absent: respiratory distress - Cardiovascular Cardiovascular Exam: Present: regular rate, normal rhythm. Absent: systolic murmur, diastolic murmur, rubs, gallop - GI/Abdominal GI/Abdominal exam: Present: soft, normal bowel sounds - Extremities Exam Extremities exam: Present: normal inspection, other (patient has 5 out of 5 latent fingerprint examiner strength in both upper extremities) - Back Exam Back exam: Present: normal inspection - Neurological Exam Neurological exam: Present: alert, oriented X3, CN II-XII intact. Absent: motor sensory deficit - Psychiatric Psychiatric exam: Present: normal affect, normal mood - Skin Skin exam: Present: warm, dry, intact, normal color. Absent: rash ED Course Vital Signs 08/05/19 15:39 Temperature 98.5 F Pulse Rate 88 Respiratory 19 Rate Blood Pressure 173/73 [Right] O2 Sat by Pulse 99 Oximetry ED Medical Decision Making - Radiology Data Radiology results: report reviewed - Medical Decision Making Results discussed with patient and her mother Critical care attestation.: If time is entered above; I have spent that time in minutes in the direct care of this critically ill patient, excluding procedure time. ED Disposition Clinical Impression: Closed head injury Disposition: DC-01 TO HOME OR SELFCARE Is pt being admited?: No Does the pt Need Aspirin: No Condition: Stable Instructions: Acute Headache (ED) Additional Instructions: return if worse Time of Disposition: 19:13
[2019-08-05] MEDS ORDERED: TETANUS,DIPH,PERTUSS(ACELL) VACCINE 0.5 ML SYRINGE IM ONE (17:41)
--- NOTE | 2019-08-05 18:05 | Cat Scan Report ---
CT BRAIN: 08/05/2019 INDICATION / CLINICAL INFORMATION: head injury. COMPARISON: 03/30/2017 FINDINGS: BRAIN/INTRACRANIAL STRUCTURES: Unenhanced CT images of the brain dated straight no evidence of acute intracranial abnormality. Ventricles and sulci are normal in size and shape for a patient of this age, and unchanged when earl red to 03/30/2017. There is no evidence of hemorrhage or mass. There are no abnormal extra-axial fluid collections. Left frontal scalp edema and right forehead scalp hematoma is noted. Prominent soft tissue swelling i s seen over the bridge of the nose. There is no definite evidence of fracture on the bone windows of this head CT series. EXTRACRANIAL STRUCTURES: As above IMPRESSION: Negative unenhanced CT of the brain. Scalp injury noted. All CT scans at this location are performed using dose reduction to ALARA by means of automated expos ure control. Signer Name: Alfonso Pimentel MD Signed: 08/05/2019 6:00 PM Workstation Name: [id number]
[2019-08-05 19:49] VITALS: BP 169/79
== END 2019-08-05 20:06 | disposition home or self-care (01) ==
LOC: ED 14:59
DX: S09.90XA Unspecified injury of head, initial encounter (principal); I11.0 Hypertensive heart disease with heart failure; I50.9 Heart failure, unspecified; J44.9 Chronic obstructive pulmonary disease, unspecified; Z95.5 Presence of coronary angioplasty implant and graft; Z79.899 Other long term (current) drug therapy; Z88.0 Allergy status to penicillin; Z88.5 Allergy status to narcotic agent; W01.0XXA Fall on same level from slipping, tripping and stumbling without subsequent striking against object, initial encounter; Y93.89 Activity, other specified; Y92.89 Other specified places as the place of occurrence of the external cause; Y99.8 Other external cause status
CPT/HCPCS: 70450; 90471; 90715; 96374; 96375; 99284; J2270; J2405

== ENCOUNTER 2020-11-03 19:58 | Emergency (ER) | payer MEDICARE ==
--- NOTE | 2020-11-03 20:24 | Emergency Department Report ---
ED Fall HPI - General Chief Complaint: Extremity Injury, Lower Stated Complaint: FALL/LEG PAIN Time Seen by Provider: 11/03/20 20:06 Source: patient, EMS Mode of arrival: Stretcher Limitations: Physical Limitation - History of Present Illness Initial Comments: Patient is a 7-year-old female that presents emergency room with complaints of bilateral lower extremity and lower back pain after a fall last night. Patient states she fell last night trying to pick something up and landed on her knees and injured her knees and hips. Patient states she is on the floor ever since due to not being able to get up and her family called EMS once they came home. Patient states the pain is a 10 out of 10. Patient dates the pain is worse with movement and palpation. Patient dates the pain is better with rest. Patient states she normally walks with a walker and she is having difficulty getting up due to the pain in her knees. Patient states that she did not lose consciousness or hit her head. Patient states she simply fell because she was leaning over to pick something up and landed directly on her knees. Patient denies other complaints. Patient denies recent travel. Patient denies recent international travel. Patient denies exposure to the novel coronavirus. Patient denies sick contacts. Patient denies fever and chills. Patient denies cough. Patient denies diarrhea. Patient denies coming in contact with anybody with symptoms of the novel coronavirus. Complaint: fall -: Sudden Fall From: standing Place Fall Occurred: home Loss of Consciousness: none Prolonged Down Time?: yes Symptoms Prior to Fall: none Location: back Location - Extremities: Left: Thigh, Knee, Right: Thigh, Knee Severity: severe Severity scale (0 -10): 10 Quality: sharp Context: tripped/slipped Associated Symptoms: denies: headache, neck pain, numbness, weakness, chest paint, shortness of breath, abdominal pain, hematuria, unable to walk, lightheaded, vertigo, confusion - Related Data Previous Rx's Medication Instructions Recorded Last Taken Type amLODIPine 5 mg PO DAILY #30 tablet 09/15/15 03/30/17 Rx Aspirin [Aspirin BABY CHEW TAB] 81 mg PO QDAY #90 tab.chew 04/04/17 Unknown Rx Furosemide [Lasix TAB] 20 mg PO QDAY #30 tablet 04/04/17 Unknown Rx Ipratropium [Atrovent NEB] 0.5 mg IH Q8HRT PRN #100 nebu 04/04/17 Unknown Rx Losartan [Cozaar] 50 mg PO QDAY #30 tablet 04/04/17 Unknown Rx Metoprolol Tartrate 75 mg PO QAM #30 tablet 04/04/17 Unknown Rx Potassium Chloride [K-Dur] 10 meq PO QDAY #30 tablet 04/04/17 Unknown Rx QUEtiapine [SEROquel] 400 mg PO BID #60 tablet 04/04/17 Unknown Rx Sertraline [Zoloft] 200 mg PO DAILY #30 tablet 04/04/17 Unknown Rx amLODIPine 10 mg PO QDAY #30 tablet 04/04/17 Unknown Rx clonazePAM [KlonoPIN] 1 mg PO BID #60 tablet 04/04/17 Unknown Rx hydrALAZINE [Apresoline TAB] 25 mg PO Q8HR #90 tablet 04/04/17 Unknown Rx predniSONE 10 mg PO QDAY #60 tab 04/04/17 Unknown Rx Butalb/Acetamin/Caff 50-325-40 1 tab PO Q6HR PRN #24 tab 08/05/19 Unknown Rx [Fioricet] Metaxalone [Skelaxin] 800 mg PO TID PRN #20 tablet 11/04/20 Unknown Rx Naproxen 500 mg PO BID PRN #20 tablet 11/04/20 Unknown Rx Allergies Allergy/AdvReac Type Severity Reaction Status Date / Time penicillin G Allergy Itching Verified 12/23/14 14:13 codeine AdvReac Dizziness Verified 12/23/14 14:13 ED Review of Systems ROS: Stated complaint: FALL/LEG PAIN Other details as noted in HPI Constitutional: denies: chills, fever Eyes: denies: eye pain, eye discharge, vision change ENT: denies: ear pain, throat pain Respiratory: denies: cough, shortness of breath, wheezing Cardiovascular: denies: chest pain, palpitations Endocrine: no symptoms reported Gastrointestinal: denies: abdominal pain, nausea, diarrhea Genitourinary: denies: urgency, dysuria, discharge Musculoskeletal: as per HPI, back pain. denies: joint swelling, arthralgia Skin: denies: rash, lesions Neurological: denies: headache, weakness, paresthesias Psychiatric: denies: anxiety, depression Hematological/Lymphatic: denies: easy bleeding, easy bruising ED Past Medical Hx - Past Medical History Previous Medical History?: Yes Hx Hypertension: Yes Hx Congestive Heart Failure: Yes Hx Diabetes: No Hx Asthma: Yes Hx COPD: Yes Hx HIV: No Additional medical history: CAD - Surgical History Past Surgical History?: Yes Hx Coronary Stent: Yes Additional Surgical History: stents, heart cath - Family History Family history: no significant - Social History Smoking Status: Never Smoker Substance Use Type: None - Medications Home Medications: Home Medications Medication Instructions Recorded Confirmed Last Taken Type amLODIPine 5 mg PO DAILY #30 tablet 09/15/15 03/30/17 03/30/17 Rx Aspirin [Aspirin BABY CHEW TAB] 81 mg PO QDAY #90 tab.chew 04/04/17 Unknown Rx Furosemide [Lasix TAB] 20 mg PO QDAY #30 tablet 04/04/17 Unknown Rx Ipratropium [Atrovent NEB] 0.5 mg IH Q8HRT PRN #100 nebu 04/04/17 Unknown Rx Losartan [Cozaar] 50 mg PO QDAY #30 tablet 04/04/17 Unknown Rx Metoprolol Tartrate 75 mg PO QAM #30 tablet 04/04/17 Unknown Rx Potassium Chloride [K-Dur] 10 meq PO QDAY #30 tablet 04/04/17 Unknown Rx QUEtiapine [SEROquel] 400 mg PO BID #60 tablet 04/04/17 Unknown Rx Sertraline [Zoloft] 200 mg PO DAILY #30 tablet 04/04/17 Unknown Rx amLODIPine 10 mg PO QDAY #30 tablet 04/04/17 Unknown Rx clonazePAM [KlonoPIN] 1 mg PO BID #60 tablet 04/04/17 Unknown Rx hydrALAZINE [Apresoline TAB] 25 mg PO Q8HR #90 tablet 04/04/17 Unknown Rx predniSONE 10 mg PO QDAY #60 tab 04/04/17 Unknown Rx Butalb/Acetamin/Caff 50-325-40 1 tab PO Q6HR PRN #24 tab 08/05/19 Unknown Rx [Fioricet] Metaxalone [Skelaxin] 800 mg PO TID PRN #20 tablet 11/04/20 Unknown Rx Naproxen 500 mg PO BID PRN #20 tablet 11/04/20 Unknown Rx ED Physical Exam - General Limitations: Physical Limitation General appearance: alert, in no apparent distress, obese - Head Head exam: Present: atraumatic, normocephalic - Eye Eye exam: Present: normal appearance, PERRL Pupils: Present: normal accommodation - ENT ENT exam: Present: mucous membranes moist - Neck Neck exam: Present: normal inspection - Respiratory Respiratory exam: Present: normal lung sounds bilaterally. Absent: respiratory distress, wheezes, rales - Cardiovascular Cardiovascular Exam: Present: regular rate, normal rhythm. Absent: systolic murmur, diastolic murmur, rubs, gallop - GI/Abdominal GI/Abdominal exam: Present: soft, normal bowel sounds. Absent: distended, tenderness, guarding - Extremities Exam Extremities exam: Present: normal inspection, tenderness (Tenderness to palpation of the bilateral hips, bilateral thighs and bilateral knees. No deformities noted.) - Back Exam Back exam: Present: normal inspection - Neurological Exam Neurological exam: Present: alert, oriented X3 - Psychiatric Psychiatric exam: Present: normal affect, normal mood - Skin Skin exam: Present: warm, dry, intact, normal color. Absent: rash ED Course Vital Signs 11/03/20 11/03/20 11/03/20 20:18 20:19 20:31 Temperature 97.7 F Pulse Rate 93 H 92 H 90 Respiratory 18 20 20 Rate Blood Pressure 98/64 Blood Pressure 98/64 [Left] O2 Sat by Pulse 99 99 100 Oximetry 11/03/20 11/03/20 11/03/20 20:45 21:01 21:15 Temperature Pulse Rate 94 H 92 H 88 Respiratory 22 19 18 Rate Blood Pressure 105/43 105/43 116/38 Blood Pressure [Left] O2 Sat by Pulse 99 99 98 Oximetry 11/03/20 11/03/20 11/03/20 21:31 21:45 22:01 Temperature Pulse Rate 91 H 89 86 Respiratory 20 18 15 Rate Blood Pressure 116/38 136/55 136/55 Blood Pressure [Left] O2 Sat by Pulse 100 100 99 Oximetry 11/03/20 11/03/20 11/03/20 22:31 23:20 23:31 Temperature Pulse Rate 89 95 H Respiratory 15 15 Rate Blood Pressure 94/31 100/41 100/41 Blood Pressure [Left] O2 Sat by Pulse 96 97 99 Oximetry - Reevaluation(s) Reevaluation #1: Patient complaining of severe pain. Patient was given a milligram of Dilaudid. 11/03/20 21:40 Reevaluation #2: Patient states her pain is better. Patient had a lumbar CT due to the x-ray of the lumbar spine not clear for fracture. I discussed all results and clinical findings with patient. I discussed plan of care with patient. Patient agrees with plan of care. Patient is stable for discharge. Patient will be discharged home. Patient given discharge instructions. Patient voiced understanding of discharge instructions. 11/04/20 00:19 ED Medical Decision Making - Lab Data Result diagrams: 11/03/20 20:54 11/03/20 20:54 - Radiology Data Radiology results: report reviewed, image reviewed BILATERAL KNEE, 7 VIEWS, BILATERAL FEMUR MULTIPLE VIEWS INDICATION / CLINICAL INFORMATION: fall. sharif knee pain. sharif hip pain, sharif thigh pain. COMPARISON: None available. FINDINGS: Right knee: Moderate to severe degenerative changes present. This is most notable in the medial joint compartment. No fracture or dislocation. No obvious suprapatellar joint effusion. Left knee: Moderate to severe degenerative changes present, most notable in the medial joint compartment. No significant suprapatellar joint effusion. Right femur: The right femur is grossly intact. No visible fracture or disloc ation. Left femur: The left femur is grossly intact. No visible fracture or dislocation. IMPRESSION: No visible fractures of the femurs or knees bilaterally. There is prominent degenerative change in both knees. AP PELVIS, SINGLE VIEW INDICATION / CLINICAL INFORMATION: fall. sharif knee pain. sharif hip pain, sharif thigh pain. COMPARISON: None available. FINDINGS: Due to patient's body habitus, the graft imaging quality is markedly limited. Views of the pelvis do not demonstrate any gross fracture or dislocation. Please note that a subtle nondisplaced fracture may not be visualized due to the quality of exam. IMPRESSION: Limited diagnostic images of the pelvis. No gross fracture or dislocation identified. LUMBAR SPINE, SINGLE VIEW INDICATION / CLINICAL INFORMATION: fall. sharif knee pain. sharif hip pain, sharif thigh pain. COMPARISON: None available. FINDINGS: AP view of the lumbar spine does not reveal any obvious fracture on this single view. Attempts were made to obtain a lateral view but were unsuccessful due to body habitus. Lateral radiographs are nondiagnostic due to inadequate penetration. IMPRESSION: Only single AP view was able to be obtained. There is no obvious gross fracture of the lumbar spine noted. Although I do not see obvious fracture, a subtle fracture cannot be excluded based solely on AP view. CT LUMBAR SPINE WITHOUT CONTRAST INDICATION: back pain. fall. pelvis pain.. TECHNIQUE: All CT scans at this location are performed using CT dose reduction for [employer] by means of automated exposure control. Axial CT images were obtained through the lumbar spine. Sagittal and coronal reformatted images were produced. COMPARISON: Lumbar spine x-ray same day FINDINGS: Fracture: None. Subluxation: None. Spinal canal: No significant compromise. Disc spaces: Moderate discogenic degenerative disease L4-S1. Facet joints: Moderate facet degenerative disease L3-S1. Paraspinal soft tissues: No soft tissue swelling. Marked fatty atrophy right iliopsoas muscles. Osteopenia. Additional findings: Extensive sigmoid diverticulosis IMPRESSION: 1. No lumbar fracture. - Medical Decision Making Patient is a 70-year-old female that presents emergency room with complaints of fall after slipping using a walker and bending over trying to pick something up. Patient states she fell onto her knees. Patient denied hitting her head or loss consciousness. Patient complained of lower back pain, pelvic pain, hip pain, thigh pain and knee pain. Patient had x-rays done which were essentially unremarkable. Patient had a CT of the lumbar spine because the x-ray was unable to rule out a lumbar fracture. Patient's CT of lumbar spine had no acute findings or fracture. Patient had labs done which were essentially u nremarkable. I personally reviewed the x-rays. Patient given Dilaudid for pain. Patient responded well. Patient since leaving the ER pain-free. Patient will be discharged home. Patient stable for discharge. - Differential Diagnosis Fall, knee pain, lumbar pain, thigh pain, pelvic pain, strain, sprain, fx Critical care attestation.: If time is entered above; I have spent that time in minutes in the direct care of this critically ill patient, excluding procedure time. ED Disposition Clinical Impression: Bilateral thigh pain Back pain Qualifiers: Back pain location: low back pain Chronicity: acute Back pain laterality: midline Sciatica presence: without sciatica Qualified Code(s): M54.5 - Low back pain Lumbar sprain Qualifiers: Encounter type: initial encounter Qualified Code(s): S33.5XXA - Sprain of ligaments of lumbar spine, initial encounter Fall Qualifiers: Encounter type: initial encounter Qualified Code(s): W19.XXXA - Unspecified fall, initial encounter Knee pain, bilateral Qualifiers: Chronicity: acute Qualified Code(s): M25.561 - Pain in right knee Knee contusion Qualifiers: Encounter type: initial encounter Laterality: unspecified laterality Qualified Code(s): S80.00XA - Contusion of unspecified knee, initial encounter Disposition: TO HOME OR SELFCARE Is pt being admited?: No Does the pt Need Aspirin: No Condition: Stable Instructions: Acute Knee Pain, Adult, Lumbar Sprain, Acute Back Pain, Adult, Contusion, [id number], Back Injury Prevention Additional Instructions: Patient to follow-up with primary care in 2 to 3 days. Patient to follow-up with orthopedist in 2 to 3 days. Patient to rest. Patient to increase water. Patient to avoid strenuous exercise or heavy lifting until cleared by the previous.. Patient to take Tylenol or ibuprofen as needed for pain. Patient to take meds as directed. Patient to return to the ER if condition worsens, changes or new symptoms arise. Prescriptions: Naproxen 500 mg PO BID PRN #20 tablet PRN Reason: Pain , Severe (7-10) Metaxalone [Skelaxin] 800 mg PO TID PRN #20 tablet PRN Reason: Spasms Referrals: PRIMARY CARE, [Primary Care Provider] - 2-3 Days ROSE ZAMUDIO MD [Staff Physician] - 2-3 Days Time of Disposition: 00:24
[2020-11-03 21:08] LABS: Hematocrit 37.8 % (30.3-42.9); Hemoglobin 12.3 gm/dl (10.1-14.3); Mean Corpuscular HGB Conc 33 % (30-34); Mean Corpuscular Volume 94 fl (79-97); Platelet Count 168 K/mm3 (140-440); Red Blood Count 4.01 M/mm3 (3.65-5.03); Red Cell Distribution Width 13.4 % (13.2-15.2)
--- NOTE | 2020-11-03 21:17 | XRay Report ---
LUMBAR SPINE, SINGLE VIEW INDICATION / CLINICAL INFORMATION: fall. sharif knee pain. sharif hip pain, sharif thigh pain. COMPARISON: None available. FINDINGS: AP view of the lumbar spine does not reveal any obvious fracture on this single view. Attempts were m michael to obtain a lateral view but were unsuccessful due to body habitus. Lateral radiographs are nond iagnostic due to inadequate penetration. IMPRESSION: Only single AP view was able to be obtained. There is no obvious gross fracture of the franck mbar spine noted. Although I do not see obvious fracture, a subtle fracture cannot be excluded based solely on AP view. Signer Name: Pamela Martin MD Signed: 11/03/2020 9:12 PM Workstation Name: [id number]
[2020-11-03 21:28] LABS: Alanine Aminotransferase 40 units/L (7-56); Albumin 3.7 g/dL (3.9-5); BUN/Creatinine Ratio 24; Blood Urea Nitrogen 19 mg/dL (7-17); Hemolysis Index 89
--- NOTE | 2020-11-03 21:29 | XRay Report ---
AP PELVIS, SINGLE VIEW INDICATION / CLINICAL INFORMATION: fall. sharif knee pain. sharif hip pain, sharif thigh pain. COMPARISON: None available. FINDINGS: Due to patient's body habitus, the graft imaging quality is markedly limited. Views of the pelvis do not demonstrate any gross fracture or dislocation. Please note that a subtle n ondisplaced fracture may not be visualized due to the quality of exam. IMPRESSION: Limited diagnostic images of the pelvis. No gross fracture or dislocation identified. Signer Name: Pamela Martin MD Signed: 11/03/2020 9:25 PM Workstation Name: [id number]
--- NOTE | 2020-11-03 21:34 | XRay Report ---
BILATERAL KNEE, 7 VIEWS, BILATERAL FEMUR MULTIPLE VIEWS INDICATION / CLINICAL INFORMATION: fall. sharif knee pain. sharif hip pain, sharif thigh pain. COMPARISON: None available. FINDINGS: Right knee: Moderate to severe degenerative changes present. This is most notable in the medial joint compartment. No fracture or dislocation. No obvious suprapatellar joint effusion. Left knee: Moderate to severe degenerative changes present, most notable in the medial joint compartm ent. No significant suprapatellar joint effusion. Right femur: The right femur is grossly intact. No visible fracture or dislocation. Left femur: The left femur is grossly intact. No visible fracture or dislocation. IMPRESSION: No visible fractures of the femurs or knees bilaterally. There is prominent degenerative change in both knees. Signer Name: Pamela Martin MD Signed: 11/03/2020 9:29 PM Workstation Name: [id number]
[2020-11-03] MEDS ORDERED: HYDROmorphone 1 MG/1 ML INJ IV ONE (21:38)
--- NOTE | 2020-11-03 23:37 | Cat Scan Report ---
CT LUMBAR SPINE WITHOUT CONTRAST INDICATION: back pain. fall. pelvis pain.. TECHNIQUE: All CT scans at this location are performed using CT dose reduction for ALARA by means of automated e xposure control. Axial CT images were obtained through the lumbar spine. Sagittal and coronal reforma tted images were produced. COMPARISON: Lumbar spine x-ray same day FINDINGS: Fracture: None. Subluxation: None. Spinal canal: No significant compromise. Disc spaces: Moderate discogenic degenerative disease L4-S1. Facet joints: Moderate facet degenerative disease L3-S1. Paraspinal soft tissues: No soft tissue swelling. Marked fatty atrophy right iliopsoas muscles. Osteo penia. Additional findings: Extensive sigmoid diverticulosis IMPRESSION: 1. No lumbar fracture. Signer Name: Praneeth Jacob MD Signed: 11/03/2020 11:33 PM Workstation Name: [id number]
[2020-11-03 23:49] VITALS: BP 100/41
== END 2020-11-04 02:16 | disposition home or self-care (01) ==
LOC: ED 19:58
DX: S33.5XXA Sprain of ligaments of lumbar spine, initial encounter (principal); S80.02XA Contusion of left knee, initial encounter; S80.01XA Contusion of right knee, initial encounter; M54.5 Low back pain; M79.652 Pain in left thigh; M79.651 Pain in right thigh; I11.0 Hypertensive heart disease with heart failure; I50.9 Heart failure, unspecified; J44.9 Chronic obstructive pulmonary disease, unspecified; Z98.890 Other specified postprocedural states; Z79.899 Other long term (current) drug therapy; Z88.0 Allergy status to penicillin; Z88.8 Allergy status to other drugs, medicaments and biological substances; W19.XXXA Unspecified fall, initial encounter; Y93.89 Activity, other specified; Y92.009 Unspecified place in unspecified non-institutional (private) residence as the place of occurrence of the external cause; Y99.8 Other external cause status
CPT/HCPCS: 36415; 72100; 72131; 72170; 73552; 73562; 80053; 85027; 96374; 99285; J1170